=== PATIENT | male | born 1935 | race Caucasian/White ===

== ENCOUNTER 2017-05-13 14:38 | Emergency (ER) | payer MEDICARE, BC ==
--- NOTE | 2017-05-13 15:22 | ER Document Report ---
ED Medical Screen (RME) - General Chief Complaint: Blood Pressure Problem Stated Complaint: BLOOD PRESSURE ISSUES Time Seen by Provider: 05/13/17 15:21 Notes: Patient states that he went to physician's office today to get some medicine for a cough that he has had for about a week. He states that the office they noticed that his blood pressure is low so they referred him to his collision worker. His collision worker office was closed so he was sent to the emergency department. He states the last 4 days he has had increasing shortness of breath with exertion. He states he does have a history of myelodysplasia and is currently getting chemotherapy for it. TRAVEL OUTSIDE OF THE [place] IN LAST 30 DAYS: No - Related Data Allergies/Adverse Reactions: No Known Allergies Allergy (Verified 05/13/17 14:43) Past Medical History - Social History Chew tobacco use (# tins/day): No Frequency of alcohol use: None Drug Abuse: None - Past Medical History Cardiac Medical History: Reports: Hx Coronary Artery Disease - CHOLESTEROL, Hx Heart Attack - MILD, Hx Hypercholesterolemia, Hx Hypertension Pulmonary Medical History: Reports: Hx Pneumonia Denies: Hx Asthma, Hx Bronchitis, Hx COPD Neurological Medical History: Denies: Hx Cerebrovascular Accident, Hx Seizures Renal/ Medical History: Reports: Hx Kidney Stones. 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 EX-LAP 1961, Hx Cardiac Catheterization, Hx Testicular Surgery - LEFT ORCHIECTOMY WITH RADIATION [place] - Immunizations Hx Diphtheria, Pertussis, Tetanus Vaccination: Yes Physical Exam - Vital signs Vitals: Temp Pulse Resp BP Pulse Ox 97.6 F 42 L 18 140/50 H 99 05/13/17 14:42 05/13/17 14:42 05/13/17 14:42 05/13/17 14:42 05/13/17 14:42 Course - Vital Signs Vital signs: Temp Pulse Resp BP Pulse Ox 97.6 F 42 L 18 140/50 H 99 05/13/17 14:42 05/13/17 14:42 05/13/17 14:42 05/13/17 14:42 05/13/17 14:42
[2017-05-13 16:16] LABS: ABSOLUTE EOSINOPHILS # (AUTO) 0.3 10^3/uL (0.0-0.6); ABSOLUTE LYMPHOCYTES (AUTO) 1.5 10^3/uL (0.5-4.7); ABSOLUTE MONOCYTES (AUTO) 0.2 10^3/uL (0.1-1.4); BASOPHILS % (AUTO) 1.1 % (0-2); EOSINOPHILS % (AUTO) 7.6 % (0-6); HEMATOCRIT 30.5 % (37.9-51.0); HEMOGLOBIN 10.5 g/dL (13.5-17.0); LYMPHOCYTES % (AUTO) 36.8 % (13-45); MEAN CORPUSCULAR HEMOGLOBIN 33.3 pg (27.0-33.4); MEAN CORPUSCULAR HGB CONC 34.3 g/dL (32.0-36.0); MEAN CORPUSCULAR VOLUME 97 fl (80-97); RED BLOOD COUNT 3.14 10^6/uL (4.35-5.55); RED CELL DISTRIBUTION WIDTH 14.5 % (11.5-14.0); SEGMENTED NEUTROPHILS % (AUTO) 49.5 % (42-78); WHITE BLOOD COUNT 4.1 10^3/uL (4.0-10.5)
--- NOTE | 2017-05-13 16:27 | RADIOLOGY REPORT (SQ) ---
EXAM DESCRIPTION: CHEST PA/LAT COMPLETED DATE/TIME: 05/13/2017 4:14 pm REASON FOR STUDY: cough COMPARISON: None. EXAM PARAMETERS: NUMBER OF VIEWS: two views TECHNIQUE: Digital Frontal and Lateral radiographic views of the chest acquired. RADIATION DOSE: NA LIMITATIONS: none FINDINGS: LUNGS AND PLEURA: No opacities, masses or pneumothorax. No pleural effusion. MEDIASTINUM AND HILAR STRUCTURES: No masses or contour abnormalities. HEART AND VASCULAR STRUCTURES: Heart normal size. No evidence for failure. BONES: No acute findings. HARDWARE: None in the chest. OTHER: No other significant finding. IMPRESSION: NO SIGNIFICANT RADIOGRAPHIC FINDING IN THE CHEST. TECHNICAL DOCUMENTATION: JOB ID: [id number] [email or web address]- All Rights Reserved
[2017-05-13 16:31] LABS: ALANINE AMINOTRANSFERASE 33 U/L (21-72); ALBUMIN 3.6 g/dL (3.5-5.0); ALKALINE PHOSPHATASE 120 U/L (38-126); ANION GAP 10 (5-19); ASPARTATE AMINO TRANSFERASE 20 U/L (17-59); BILIRUBIN,DIRECT 0.3 mg/dL (0.0-0.4); BILIRUBIN,TOTAL 0.5 mg/dL (0.2-1.3); BLOOD UREA NITROGEN 27 mg/dL (7-20); CALCIUM 9.6 mg/dL (8.4-10.2); CARBON DIOXIDE 29 mmol/L (22-30); CHLORIDE 101 mmol/L (98-107); CREATININE RESULT 1.04 mg/dL (0.52-1.25); GLUCOSE 134 mg/dL (75-110); POTASSIUM 4.5 mmol/L (3.6-5.0); SODIUM 139.7 mmol/L (137-145); TOTAL PROTEIN 6.6 g/dL (6.3-8.2)
--- NOTE | 2017-05-13 16:53 | ER Document Report ---
ED General - General Mode of Arrival: Ambulatory Information source: Patient TRAVEL OUTSIDE OF THE [place] IN LAST 30 DAYS: No <DENISE HASTINGS - Last Filed: 05/13/17 19:05> <ANDRIY MEDRANO - Last Filed: 05/13/17 20:56> - General Chief Complaint: Blood Pressure Problem Stated Complaint: BLOOD PRESSURE ISSUES Time Seen by Provider: 05/13/17 15:21 Notes: 82 yo male with myelodysplasia cancer, left testicle cancer 1981, CAD, [place], hyperlipedemic, came to see [facility] once for his dry cough x 1 week and they found blood pressure 105/47 so they sent him thinking it was his hear. New symptom is lightheaded, vertigo, weakness, short of breath new symptoms this week, easily fatigued.. A few of those episodes past 3 weeks. No nausea, chest pain, or abdominal pain. Chemo last week- daily shots x 5. No hx of PE. [place] during colectomy for diverticulitis. 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 kenia blanco([facility] dr. bess) Examined EKG with Dr. Medrano and the pt is in 3rd degree heartblock. Started on Metoprolol XL 50mg 1 month ago (used to be on Atenolol) (DENISE HASTINGS) - Related Data Allergies/Adverse Reactions: No Known Allergies Allergy (Verified 05/13/17 14:43) Past Medical History - General Information source: Patient - Social History Smoking Status: Former Smoker Chew tobacco use (# tins/day): No Frequency of alcohol use: None Drug Abuse: None Lives with: Spouse/Significant other Family History: Reviewed & Not Pertinent - Past Medical History Cardiac Medical History: Reports: Hx Coronary Artery Disease - CHOLESTEROL, Hx Heart Attack - MILD, Hx Hypercholesterolemia, Hx Hypertension Pulmonary Medical History: Reports: Hx Pneumonia Renal/ Medical History: Reports: Hx Kidney Stones. Denies: Hx Peritoneal Dialysis Malignancy Medical History: Reports Hx Testicular Cancer Past Surgical History: Reports: Hx Bowel Surgery - 8 inches of small intestines removed 2005. EX-LAP 1961, Hx Cardiac Catheterization, Hx Testicular Surgery - LEFT ORCHIECTOMY WITH RADIATION [place] - Immunizations Hx Diphtheria, Pertussis, Tetanus Vaccination: Yes Hx Pneumococcal Vaccination: 08/16/05 <DENISE HASTINGS - Last Filed: 05/13/17 19:05> Review of Systems - Review of Systems Constitutional: See HPI EENT: No symptoms reported Cardiovascular: No symptoms reported Respiratory: See HPI Gastrointestinal: No symptoms reported Genitourinary: No symptoms reported Male Genitourinary: No symptoms reported Musculoskeletal: No symptoms reported Skin: No symptoms reported Hematologic/Lymphatic: No symptoms reported Neurological/Psychological: See HPI <DENISE HASTINGS - Last Filed: 05/13/17 19:05> Physical Exam - Vital signs Interpretation: Normal - General General appearance: Appears well, Alert In distress: None - HEENT Head: Normocephalic, Atraumatic Eyes: Normal Conjunctiva: Normal Pupils: PERRL Neck: Supple. No: Lymphadenopathy, Thyromegally - Respiratory Respiratory status: No respiratory distress Chest status: Nontender Breath sounds: Nonproductive cough - coarse wheeze left base Chest palpation: Normal - Cardiovascular Rhythm: Bradycardia, Other - heart block, 3rd degree suspected or high grade 2nd degree Heart sounds: Normal auscultation Murmur: No - Abdominal Inspection: Normal Distension: No distension Bowel sounds: Normal Tenderness: Nontender. No: Tender Organomegaly: No organomegaly - Back Back: Normal, Nontender - Extremities General upper extremity: Normal inspection, Nontender, Normal color, Normal ROM , Normal temperature General lower extremity: Normal inspection, Nontender, Normal color, Normal ROM , Normal temperature, Normal weight bearing. No: Ralph's sign - Neurological Neuro grossly intact: Yes Cognition: Normal Orientation: AAOx4 Zandra Coma Scale Eye Opening: Spontaneous Zandra Coma Scale Verbal: Oriented [place] Coma Scale Motor: Obeys Commands [place] Coma Scale Total: 15 Speech: Normal Motor strength normal: LUE, RUE, LLE, RLE Sensory: Normal - Psychological Associated symptoms: Normal affect, Normal mood - Skin Skin Temperature: Warm Skin Moisture: Dry Skin Color: Normal <DENISE HASTINGS - Last Filed: 05/13/17 19:05> <ANDRIY MEDRANO - Last Filed: 05/13/17 20:56> - Vital signs Vitals: Temp Pulse Resp BP Pulse Ox 97.6 F 42 L 18 140/50 H 99 05/13/17 14:42 05/13/17 14:42 05/13/17 14:42 05/13/17 14:42 05/13/17 14:42 - Cardiovascular Notes: occ pac (DENISE HASTINGS) Course - Laboratory Result Diagrams: 05/13/17 15:55 05/13/17 15:55 - EKG Interpretation by Me EKG shows normal: QRS Complexes - narrow Rate: Bradycardia Heart block present: Mobitz 2, CHB (3rd degree block) - possible - Transfer of Care Care transferred to following provider: dr. medrano at 1903 <DENISE HASTINGS - Last Filed: 05/13/17 19:05> - Laboratory Result Diagrams: 05/13/17 15:55 05/13/17 15:55 <ANDRIY MEDRANO - Last Filed: 05/13/17 20:56> - Re-evaluation Re-evalutation: 05/13/17 17:13 Dr. Weaver will come see the pt, he is in the hospital. 05/13/17 17:41 dr. Reuben ruiz will accept the pt. 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 parrish attending. Bassam will call back for bed assignment 05/13/17 18:04 Patient converted to normal sinus rhythm rate 68 with a MN of 0.20 Dr. Weaver is in the room again, patient still needs to go for a pacemaker and they are agreeable to that. (DENISE HASTINGS) 05/13/17 17:13: EKG shown to me by NATHAN Hastings. Patient immediately seen in pads placed on patient for Mobitz type II block or third-degree heart block. He remained stable and his potassium is normalized. Dr. Weaver in the emergency room to consult on patient and recommends transferring to tertiary care center for pacemaker placement or EP study. (ANDRIY MEDRANO) - Vital Signs Vital signs: Temp Pulse Resp BP Pulse Ox 97.6 F 42 L 16 134/64 H 99 05/13/17 14:42 05/13/17 14:42 05/13/17 17:57 05/13/17 17:57 05/13/17 17:57 - Laboratory Laboratory results interpreted by me: 05/13/17 05/13/17 05/13/17 15:55 15:55 15:55 RBC 3.14 L Hgb 10.5 L Hct 30.5 L RDW 14.5 H Eosinophils % 7.6 H BUN 27 H Glucose 134 H Creatine Kinase 36 L Critical Care Note - Critical Care Note Total time excluding time spent on procedures (mins): 35 <ANDRIY MEDRANO E - Last Filed: 05/13/17 20:56>
[2017-05-13] MEDS ORDERED: ALBUTEROL SULFATE 0.083% NEB 2.5 MG/3 ML AMPUL NEB ONE (17:01)
[2017-05-13] MEDS ORDERED: NORMAL SALINE 1000 ML 1,000 ML IV ONE (17:38)
--- NOTE | 2017-05-13 19:55 | PDOC CONSULTATION ---
Consultation Consult Date: 05/13/17 Attending physician:: DENISE PATEL Consult reason:: Complete heart block History of Present Illness Admission Date/PCP: May 13, 2017 Patient complains of: Dizziness and near syncope History of Present Illness: ROXY ALANIS is a 82 yo male with myelodysplasia cancer, left testicle cancer 1981, CAD, [place], hyperlipedemic, came to [facility] for his dry cough x 1 week and they found blood pressure 105/47 so they sent him thinking it was his heart. New symptom is lightheaded, vertigo, weakness, short of breath new symptoms this week, easily fatigued. A few of those episodes past 3 weeks. No nausea, chest pain, or abdominal pain. Chemo last week- daily shots x 5. No hx of PE. [place] during colectomy for diverticulitis. Agree with this history. Patient had an EKG performed and since this was abnormal I was asked to evaluate patient. My review of electrocardiogram shows high-grade second-degree Mobitz type II AV block. Patient had at least 3-1 block on EKG. I interviewed patient and also patient's daughter. Patient has been having dizziness and near syncopal spells off and on for last 3 weeks or so. Patient denied any chest pain as such. Patient claims he has been on a stable dose of beta-rayo. It was felt by my review that patient has conduction disease and since he has Mobitz type II, left axis deviation and right bundle branch block pattern as well as high-grade AV block, patient will need to be transferred to tertiary care for either pacemaker placement or a EP study. This was related to the ER physician who is going to arrange for the transfer. I also talked with the patient and her daughter and they are agreeable for such a procedure Past Medical History Cardiac Medical History: Reports: Coronary Artery Disease - CHOLESTEROL, Myocardial Infarction - MILD, Hyperlipidema, Hypertension Pulmonary Medical History: Reports: Pneumonia Denies: Asthma, Bronchitis, Chronic Obstructive Pulmonary Disease (COPD) Neurological Medical History: Denies: Seizures Musculoskeltal Medical History: Denies: Arthritis Hematology: Denies: Anemia Past Surgical History Past Surgical History: Reports: Cardiac Catheterization Social History Information Source: Patient Lives with: Spouse/Significant other Smoking Status: Former Smoker Frequency of Alcohol Use: Rare - Advance Directive Resuscitation Status: Full Code Surrogate healthcare decision maker:: Patient's daughter is the surrogate decision-maker Family History Family History: CAD, Hypertension Parental Family History Reviewed: Yes Children Family History Reviewed: Yes Sibling(s) Family History Reviewed.: Yes Medication/Allergy Home Medications: Atenolol [Tenormin 25 mg Tablet] 25 mg PO DAILY 11/19/12 Aspirin [Aspirin 81 mg Chewable Tablet] 81 mg PO DAILY 06/11/16 Atorvastatin Calcium 40 mg PO DAILY 06/11/16 Allergies/Adverse Reactions: No Known Allergies Allergy (Verified 05/13/17 14:43) Review of Systems Review of Systems: Please see history of present illness and past medical history as wall. Constitutional: No fever or chills reported. Head : No recent chronic headaches, recent head injury. Eyes: No recent eye pain, diplopia, redness, discharge, acute visual changes. Ears: No recent chronic ear pain, acute hearing loss, ear discharge. Oral cavity: No recent ulcerations, bleeding, oral cavity discomfort. Neck: No recent acute neck pain reported. Hematologic: No recent easy bruising or bleeding or hematologic malignancy reported. Lymphatic: No recent lymphatic malignancy, chronic lymphadenopathy reported yet Cardiovascular system review: See history of present illness. Respiratory system review: No recent chronic cough, hemoptysis, blood clots in the lungs reported. Mild Shortness of breath on exertion Gastrointestinal system review: Negative for any recent acute or chronic abdominal pain, hematemesis, melena, recent change in bowel habits. Genitourinary system review: No recent acute or chronic hematuria, flank pain, UTI etc. reported. Skin system review: Negative for any recent abnormal bruising, no rash, no pruritus reported. Neurologic: No prior history of strokes, mini strokes, seizure disorder. Intermittent dizziness and near syncope. Psychologic: No history of major psychosis or major depression reported. Musculoskeletal: Minor aches and pains reported. No acute joint swelling reported. Endocrine: No recent polyuria, polydipsia, recent heat or cold intolerance. Physical Exam Vital Signs: Temp Pulse Resp BP Pulse Ox 97.6 F 42 L 16 134/64 H 99 05/13/17 14:42 05/13/17 14:42 05/13/17 17:57 05/13/17 17:57 05/13/17 17:57 Intake & Output 05/12/17 05/13/17 05/14/17 06:59 06:59 06:59 Weight 67.3 kg Exam: GENERAL: well-nourished and in no acute distress. Alert and oriented x3 HEAD: Atraumatic, normocephalic. EYES: Pupils equal round and reactive to light, extraocular movements intact, sclera anicteric, conjunctiva are normal. ENT: TMs normal, nares patent, oropharynx clear without exudates. Moist mucous membranes. No oral ulcerations or bleeding gums noted NECK: supple without lymphadenopathy. Trachea is central. No cervical or axillary lymphadenopathy noted. Carotids are 2+, JVD WNL LUNGS: Respiration seems nonlabored, no significant accessory muscle action noted. Breath sounds clear to auscultation bilaterally and equal noted. No wheezes rales or rhonchi noted. No significant dullness noted on percussion. CHEST: Palpation of the chest wall shows no significant chest wall tenderness. No other significant abnormalities noted. 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 ABDOMEN: Soft, no significant tenderness appreciated, normoactive bowel sounds. No guarding, no rebound. No rigidity noted . No masses appreciated. EXTREMITIES: Pedal pulses are 1-2+, no calf tenderness noted. No clubbing or cyanosis.trace pedal edema noted NEUROLOGICAL: Focused neurological exam showed no significant neurologic deficit. Normal speech, no focal weakness appreciated. PSYCH: Normal mood, normal affect. Judgment and insight within normal limits. SKIN: No significant ecchymosis, rash, ulcerations or signs of pruritus noted. MUSCULOSKELETAL EXAM: No significant joint swelling noted. Urogenital exam deferred. Results Laboratory Results: 05/13/17 15:55 05/13/17 15:55 05/13/17 05/13/17 15:55 15:55 WBC 4.1 RBC 3.14 L Hgb 10.5 L Hct 30.5 L MCV 97 MCH 33.3 MCHC 34.3 RDW 14.5 H Plt Count 193 Seg Neutrophils % 49.5 Lymphocytes % 36.8 Monocytes % 5.0 Eosinophils % 7.6 H Basophils % 1.1 Absolute Neutrophils 2.0 Absolute Lymphocytes 1.5 Absolute Monocytes 0.2 Absolute Eosinophils 0.3 Absolute Basophils 0.0 Sodium 139.7 Potassium 4.5 Chloride 101 Carbon Dioxide 29 Anion Gap 10 BUN 27 H Creatinine 1.04 Est GFR ( Amer) > 60 Est GFR (Non-Af Amer) > 60 Glucose 134 H Calcium 9.6 Total Bilirubin 0.5 AST 20 ALT 33 Alkaline Phosphatase 120 Total Protein 6.6 Albumin 3.6 05/13/17 05/13/17 05/13/17 15:55 15:55 15:55 Creatine Kinase 36 L CK-MB (CK-2) 0.44 Troponin I < 0.012 EKG Comments: High-grade AV block, left axis deviation, right bundle branch block pattern. Impressions: Chest X-Ray 05/13/17 15:22 IMPRESSION: NO SIGNIFICANT RADIOGRAPHIC FINDING IN THE CHEST. Assessment & Plan - Diagnosis (1) High-grade atrioventricular block Is this a current diagnosis for this admission?: Yes (2) Hypotension Qualifiers: Hypotension type: unspecified hypotension type Qualified Code(s): I95.9 - Hypotension, unspecified Is this a current diagnosis for this admission?: Yes (3) CAD (coronary artery disease) Qualifiers: Coronary Disease-Associated Artery/Lesion type: [place] artery Is this a current diagnosis for this admission?: Yes (4) Hypertension Qualifiers: Hypertension type: essential hypertension Qualified Code(s): I10 - Essential (primary) hypertension Is this a current diagnosis for this admission?: Yes (5) Hyperlipidemia Qualifiers: Hyperlipidemia type: unspecified Qualified Code(s): E78.5 - Hyperlipidemia , unspecified Is this a current diagnosis for this admission?: Yes - Notes Notes: High-grade AV block: Possible intermittent complete heart block and high-grade AV block with symptoms. Patient has Mobitz type II block, left axis deviation and right bundle branch block pattern. Feel that patient would need to be evaluated for permanent pacemaker placement and also possible EP study. Feel that patient could be placed on transcutaneous patches and observed in the ER until transportation can be arranged. Hypotension: Blood pressure could be low because of AV block. Intermittently it has been noted to normalize when patient's heart rate improves. At this point continue with slow IV fluids hydration. Coronary artery disease: Symptomatically stable. Hypertension: Currently stable. Dyslipidemia: Continue statin and other antilipid therapy as patient was on before. - Time Time Spent: 30 to 50 Minutes - CODE STATUS was discussed, patient remains full code. Surrogate decision-maker patient's daughter. Multiple medical problems were addressed. More than 50% of the time spent coordinating care, discussing management plans with involved caregivers. Management plans discussed with involved personnels. Medical decision making was of moderate to high complexity , patient's has multiple comorbidities. Medications reviewed and adjusted accordingly: Yes
--- NOTE | 2017-05-14 03:56 | EKG REPORT ---
SEVERITY:- ABNORMAL ECG - SINUS BRADYCARDIA RIGHT BUNDLE BRANCH BLOCK : Confirmed by: Lupe Caceres MD 14-May-2017 03:55:58
--- NOTE | 2017-05-14 03:56 | EKG REPORT ---
SEVERITY:- ABNORMAL ECG - SINUS RHYTHM RIGHT BUNDLE BRANCH BLOCK : Confirmed by: Lupe Caceres MD 14-May-2017 03:55:54
--- NOTE | 2017-05-14 03:56 | EKG REPORT ---
SEVERITY:- ABNORMAL ECG - SINUS BRADYCARDIA IVCD, CONSIDER ATYPICAL RBBB : Confirmed by: Lupe Caceres MD 14-May-2017 03:55:51
--- NOTE | 2017-05-14 06:30 | ER Document Report ---
Doctor's Note Notes: 05/14/17 06:27 I went to reevaluate the patient to check and see how he is doing. Patient says he feels the same. Denies any chest pain at this time. His heart rate remains mid 30s to low 40s. Blood pressure is 105/69. [facility] did call and speak with the PA fraction hour ago. There is still looking for a bed for the patient. Patient is continued to be on a monitor. Pacer pads are in place. Patient was initially made n.p.o. I will upgrade him to a full liquid diet being that we do not know about bed availability at this time. Patient continues to peer to have a second-degree type II heart block on solutions market consultant. I did update the patient and his family member about the continued delay. They are understanding of this.
[2017-05-14 15:42] VITALS: BP 133/49
--- NOTE | 2017-05-14 15:46 | ER Document Report ---
Doctor's Note Notes: 05/14/17 15:46 pt evalauted is stable, hr was 40s , pt is awaiting transport at this time
== END 2017-05-14 16:06 | disposition short-term general hospital (02) ==
LOC: ER 14:38
DX: I45.9 Conduction disorder, unspecified (principal); R03.0 Elevated blood-pressure reading, without diagnosis of hypertension; R05 Cough; R06.02 Shortness of breath
CPT/HCPCS: 93005; 94640; 99285; 96360; 96361; 36415; 82553; 82550; 85025; 80053; 84484; 71020; 93010; J7030; A9270

== ENCOUNTER 2017-12-14 00:26 | Inpatient (IN) | payer MEDICARE, BC ==
[2017-12-14] MEDS ORDERED: ONDANSETRON HCL INJ/PF 4 MG/2 ML SDV IV ONE (01:21)
[2017-12-14] MEDS ORDERED: HYDROMORPHONE HCL INJ/PF 2 MG/ML AMPULE IV ONE (01:21)
--- NOTE | 2017-12-14 01:24 | ER Document Report ---
ED Medical Screen (RME) - General Chief Complaint: Abdominal Pain Stated Complaint: ABDOMINAL PAIN Time Seen by Provider: 12/14/17 01:20 Mode of Arrival: Ambulatory Information source: Patient TRAVEL OUTSIDE OF THE [place] IN LAST 30 DAYS: No - HPI Patient complains to provider of: Abdominal pain Notes: 12/14/17 01:22 Patient is here with complaints of lower abdominal pain. Pain started earlier this evening. The pain is constant but he has waves of increasing severe pain. He had nausea, no vomiting no diarrhea. Normal bowel movement yesterday morning. No fever. No dysuria or hematuria. Prior history of testicular cancer with radiation. Myelodysplasia. Diverticulitis. Prior bowel resection. No history of bowel obstruction. Physical exam: Tenderness across the lower abdomen with guarding. No distress. Nontoxic. Appears uncomfortable. Plan: CBC, CMP, lipase, urine, CT abdomen pelvis. Pain and nausea medications have been ordered. An initial examination was made on the patient as part of the triage process, and it was determined a more comprehensive evaluation was necessary. Initial labs were ordered and patient was transferred to another provider in the ED who assumed care and finished evaluation and plan. - Related Data Allergies/Adverse Reactions: No Known Allergies Allergy (Verified 05/13/17 14:43) Past Medical History - Past Medical History Cardiac Medical History: Reports: Hx Coronary Artery Disease - CHOLESTEROL, Hx Heart Attack - MILD, Hx Hypercholesterolemia, Hx Hypertension Pulmonary Medical History: Reports: Hx Pneumonia Denies: Hx Asthma, Hx Bronchitis, Hx COPD Neurological Medical History: Denies: Hx Cerebrovascular Accident, Hx Seizures Renal/ Medical History: Reports: Hx Kidney Stones. 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 EX-LAP 1961, Hx Cardiac Catheterization, Hx Testicular Surgery - LEFT ORCHIECTOMY WITH RADIATION [place] - Immunizations Hx Diphtheria, Pertussis, Tetanus Vaccination: Yes Physical Exam - Vital signs Vitals: Temp Pulse Resp BP Pulse Ox 98.3 F 81 20 123/59 L 97 12/14/17 00:38 12/14/17 00:38 12/14/17 00:38 12/14/17 00:38 12/14/17 00:38 Course - Vital Signs Vital signs: Temp Pulse Resp BP Pulse Ox 98.3 F 81 20 123/59 L 97 12/14/17 00:38 12/14/17 00:38 12/14/17 00:38 12/14/17 00:38 12/14/17 00:38
[2017-12-14] MEDS ORDERED: NORMAL SALINE 500 ML IV ONE (01:58)
--- NOTE | 2017-12-14 02:32 | ER Document Report ---
ED General - General Chief Complaint: Abdominal Pain Stated Complaint: ABDOMINAL PAIN Time Seen by Provider: 12/14/17 01:20 Mode of Arrival: Ambulatory Notes: Patient is an 82-year-old male who presents with complaints of pain mostly in the periumbilical left lower quadrant. He has a history of diverticulitis. He has had partial bowel resection because of diverticulitis. Said this was performed 2005. He does denies any fevers. He has had some nausea but no vomiting. Pain is been ongoing since Wednesday but worsened tonight and therefore came to the ER. No bloody stools. No diarrhea. Last bowel movement was in the morning. No history of obstruction. No other complaints at this time. 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 He used to be on chemotherapy but no longer is. He says white blood cell count most recently was just over 2. TRAVEL OUTSIDE OF THE [place] IN LAST 30 DAYS: No - Related Data Allergies/Adverse Reactions: No Known Allergies Allergy (Verified 05/13/17 14:43) Past Medical History - General Information source: Patient - Social History Smoking Status: Never Smoker Frequency of alcohol use: None Drug Abuse: None Family History: CAD, Hypertension - Past Medical History Cardiac Medical History: Reports: Hx Coronary Artery Disease - CHOLESTEROL, Hx Heart Attack - MILD, Hx Hypercholesterolemia, Hx Hypertension Pulmonary Medical History: Reports: Hx Pneumonia Denies: Hx Asthma, Hx Bronchitis, Hx COPD Neurological Medical History: Denies: Hx Cerebrovascular Accident, Hx Seizures Renal/ Medical History: Reports: Hx Kidney Stones. 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 EX-LAP 1961, Hx Cardiac Catheterization, Hx Testicular Surgery - LEFT ORCHIECTOMY WITH RADIATION [place] - Immunizations Hx Diphtheria, Pertussis, Tetanus Vaccination: Yes Hx Pneumococcal Vaccination: 08/16/05 Review of Systems - Review of Systems Notes: My Normal Review Basic REVIEW OF SYSTEMS: CONSTITUTIONAL : Denies fever, chills, or sweats. Denies recent illness. RESPIRATORY: Denies cough, cold, or chest congestion. Denies shortness of breath, difficulty breathing, or wheezing. GASTROINTESTINAL: Abdominal pain in the periumbilical and left lower quadrant. GENITOURINARY: Denies difficulty urinating, painful urination, burning, frequency, or blood in urine. MUSCULOSKELETAL: Denies neck or back pain or joint pain or swelling. SKIN: Denies rash or skin lesions. HEMATOLOGIC : History of myelodysplasia NEUROLOGICAL: Denies altered mental status or loss of consciousness. Denies headache. Denies weakness or paralysis or loss of use of either side. Denies problems with gait or speech. Denies sensory or motor loss. ALL OTHER SYSTEMS REVIEWED AND NEGATIVE. Physical Exam - Vital signs Vitals: Temp Pulse Resp BP Pulse Ox 98.3 F 81 20 123/59 L 97 12/14/17 00:38 12/14/17 00:38 12/14/17 00:38 12/14/17 00:38 12/14/17 00:38 - Notes Notes: General Appearance: Well nourished, alert, cooperative, no acute distress, no obvious discomfort. Well-appearing. Vitals: reviewed, See vital signs table. Head: no swelling or tenderness to the head Eyes: PERRL, EOMI, Conjuctiva clear Mouth: No decreasd moisture Throat: No tonsillar inflammation, No airway obstruction, No lymphadenopathy Lungs: No wheezing, No rales, No rhonci, No accessory muscle use, good air exchange bilaterally. Heart: Normal rate, Regular rythm, No murmur, no rub Abdomen: Normal BS, soft, No rigidity, mild left lower quadrant abdominal tenderness to palpation, No guarding, no rebound, no abdominal masses, no organomegaly Extremities: strength 5/5 in all extremities, good pulses in all extremities, no swelling or tenderness in the extremities, no edema. Skin: warm, dry, appropriate color, no rash Neuro: speech clear, oriented x 3, normal affect, responds appropriately to questions. Course - Re-evaluation Re-evalutation: 12/14/17 04:37 Patient clinically is doing okay. He is not hypotensive or tachycardic. He says that his pain is improving and he still looks a little uncomfortable. He does have diverticulosis on CT scan. Is consistent with his history and exam. I have ordered Cipro and Flagyl. I have called the hospitalist to speak with him about admission because the patient has history of complications from diverticulitis in the past, he is 82 years old, and he has leukopenia. Fortunately his ANC is above 2000. 12/14/17 05:27 I did speak with Dr. Koroma who agrees to evaluate the patient for potential admission. Dictation of this chart was performed using voice recognition software; therefore, there may be some unintended grammatical errors. - Vital Signs Vital signs: Temp Pulse Resp BP Pulse Ox 98.3 F 81 20 123/59 L 97 12/14/17 00:38 12/14/17 00:38 12/14/17 00:38 12/14/17 00:38 12/14/17 00:38 - Laboratory Result Diagrams: 12/14/17 02:50 12/14/17 02:50 Laboratory results interpreted by me: 12/14/17 12/14/17 02:50 02:50 WBC 3.0 L RBC 3.45 L Hgb 11.5 L Hct 34.0 L MCV 99 H RDW 14.9 H Plt Count 138 L BUN 24 H Glucose 124 H Alkaline Phosphatase 147 H Discharge - Discharge Clinical Impression: Diverticulitis Condition: Stable Disposition: ADMITTED OBSERVATION Admitting Provider: Hospitalist Unit Admitted: Medical Floor
[2017-12-14 03:20] LABS: ABSOLUTE LYMPHOCYTES (AUTO) 0.8 10^3/uL (0.5-4.7); ABSOLUTE MONOCYTES (AUTO) 0.1 10^3/uL (0.1-1.4); BASOPHILS % (AUTO) 0.2 % (0-2); EOSINOPHILS % (AUTO) 0.9 % (0-6); HEMOGLOBIN 11.5 g/dL (13.5-17.0); LYMPHOCYTES % (AUTO) 25.9 % (13-45); MEAN CORPUSCULAR HEMOGLOBIN 33.3 pg (27.0-33.4); MEAN CORPUSCULAR HGB CONC 33.7 g/dL (32.0-36.0); MEAN CORPUSCULAR VOLUME 99 fl (80-97); MONOCYTES % (AUTO) 4.7 % (3-13); PLATELET COUNT 138 10^3/uL (150-450); RED BLOOD COUNT 3.45 10^6/uL (4.35-5.55); RED CELL DISTRIBUTION WIDTH 14.9 % (11.5-14.0); SEGMENTED NEUTROPHILS % (AUTO) 68.3 % (42-78); TOTAL CELLS COUNTED % (AUTO) 100 %
[2017-12-14 03:30] LABS: ALANINE AMINOTRANSFERASE 41 U/L (21-72); ALBUMIN 4.1 g/dL (3.5-5.0); ALKALINE PHOSPHATASE 147 U/L (38-126); ANION GAP 12 (5-19); ASPARTATE AMINO TRANSFERASE 32 U/L (17-59); BILIRUBIN,DIRECT 0.3 mg/dL (0.0-0.4); BILIRUBIN,TOTAL 0.6 mg/dL (0.2-1.3); BLOOD UREA NITROGEN 24 mg/dL (7-20); CALCIUM 9.6 mg/dL (8.4-10.2); CARBON DIOXIDE 30 mmol/L (22-30); CHLORIDE 99 mmol/L (98-107); GLUCOSE 124 mg/dL (75-110); LIPASE 48.8 U/L (23-300); POTASSIUM 4.1 mmol/L (3.6-5.0); SODIUM 140.7 mmol/L (137-145); TOTAL PROTEIN 7.6 g/dL (6.3-8.2)
[2017-12-14 03:39] LABS: APPEARANCE,URINE CLEAR; BILIRUBIN,URINE NEGATIVE (NEGATIVE); COLOR,URINE YELLOW; GLUCOSE, URINE NEGATIVE (NEGATIVE); KETONES,URINE NEGATIVE (NEGATIVE); LEUKOCYTE ESTERASE,URINE NEGATIVE (NEGATIVE); NITRITE,URINE NEGATIVE (NEGATIVE); PROTEIN,URINE NEGATIVE (NEGATIVE); URINE SPECIFIC GRAVITY 1.017; UROBILINOGEN,URINE NEGATIVE mg/dL (<2.0)
--- NOTE | 2017-12-14 04:29 | RADIOLOGY REPORT (SQ) ---
EXAM DESCRIPTION: CT ABDOMEN AND PELVIS WITH CONTRAST CLINICAL HISTORY: ABDO PAIN, NAUSEA, PRIOR DIVERTIC/RESECTION/CA COMPARISON: None Available. TECHNIQUE: CT of the abdomen and pelvis performed following IV administration of 75 mL of Isovue-370. DLP: 654.42 mGycm FINDINGS: Lung Bases: The visualized lung bases are clear. Partial visualization of pacemaker leads. Bones: Degenerative change of the spine. Abdomen: Liver: The liver has normal size and density. No intrahepatic mass or biliary dilatation. Calcified hepatic granulomas. Gallbladder: No calcified gallstones. Spleen, Pancreas, and Adrenal Glands: Calcified splenic granulomas. Fatty replacement of the pancreas. Adrenal glands are unremarkable. Kidneys: Punctate nonobstructing bilateral renal ki. No hydronephrosis or solid renal mass identified. Bosniak class I right renal cyst. Vasculature: Aortoiliac atherosclerosis. IVC is unremarkable. The portal vein is patent. The proximal visceral and renal arteries are patent. Stomach: The stomach and duodenum have normal course. Other: No free intraperitoneal air. No free fluid or lymphadenopathy. Pelvis: Bladder: Urinary bladder is unremarkable. Bowel: Scattered diverticula of the colon as well as of the bowel. There is a large diverticulum of the distal small bowel with adjacent perienteric fat stranding. Appendix: No evidence of appendicitis. Pelvis: Enlarged prostate. IMPRESSION: 1. Findings compatible with acute diverticulitis of the distal small bowel. No perienteric abscess formation. 2. Enlarged prostate. 3. Punctate nonobstructing bilateral renal calculi. This exam was performed according to our departmental dose-optimization program, which includes automated exposure control, adjustment of the mA and/or kV according to patient size and/or use of iterative reconstruction technique.
[2017-12-14] MEDS ORDERED: CIPROFLOXACIN 400 MG/D5W RTU 400 MG/200 ML RTUPB IV ONE (04:33)
[2017-12-14] MEDS ORDERED: METRONIDAZOLE 500 MG/NS RTU 100 ML IV ONE (04:33)
[2017-12-14] MEDS ORDERED: MAG HYDROX/AL HYDROX/SIMETH SUSP 30 ML UDCUP PO PRN (05:33)
[2017-12-14] MEDS ORDERED: IPRATROPIUM/ALBUTEROL 0.5-2.5 MG/3 ML AMPUL NEB PRN (05:33)
[2017-12-14] MEDS ORDERED: ACETAMINOPHEN 325 MG TABLET PO PRN (05:33)
[2017-12-14] MEDS ORDERED: ONDANSETRON HCL INJ/PF 4 MG/2 ML SDV IV PRN (05:33)
[2017-12-14] MEDS ORDERED: KETOROLAC TROMETHAMINE INJ/PF 30 MG/1 ML SDV IV PRN (05:36)
[2017-12-14] MEDS: NORMAL SALINE 1000 ML 1,000 ML IV PRN ×2 (06:49→10:13)
[2017-12-14] MEDS: HEPARIN SOD (PORCINE) 5,000 UNIT/ML 1 ML SYRINGE SUBCUT SCH ×3 (07:09→21:42)
--- NOTE | 2017-12-14 07:25 | PDOC H&P ---
History of Present Illness Admission Date/PCP: 12/14/17 05:41 Patient complains of: Abdominal pain History of Present Illness: ROXY ALANIS is a 82 year old male with history of bradycardia status post permanent pacemaker placement, coronary artery disease, hypertension, myelodysplasia with leukopenia, diverticulitis status post partial colon resection. He presents with 12 hours of abdominal pain and nausea prompting evaluation emergency room where he is found to have diverticulitis by CT without abscess, a white blood cell count of 3.0. He started on IV saline, ciprofloxacin and Flagyl. He is referred to the hospitalist for admission. Patient denies new medication, diet or constipation. Past Medical History Cardiac Medical History: Reports: Coronary Artery Disease - CHOLESTEROL, Myocardial Infarction - MILD, Hyperlipidema, Hypertension Pulmonary Medical History: Reports: Pneumonia Denies: Asthma, Bronchitis, Chronic Obstructive Pulmonary Disease (COPD) Neurological Medical History: Denies: Seizures Malignancy Medical History: Reports: Other - Myelodysplasia and leukopenia Musculoskeltal Medical History: Denies: Arthritis Hematology: Denies: Anemia Past Surgical History Past Surgical History: Reports: Cardiac Catheterization, Pacemaker, Other - Partial colon resection 2015 Social History Information Source: Patient, [facility] Records Lives with: Spouse/Significant other Smoking Status: Never Smoker Frequency of Alcohol Use: Rare Drugs: None - Advance Directive Resuscitation Status: Full Code Family History Family History: CAD, Hypertension Parental Family History Reviewed: Yes Children Family History Reviewed: Yes Sibling(s) Family History Reviewed.: Yes Medication/Allergy Allergies/Adverse Reactions: No Known Allergies Allergy (Verified 05/13/17 14:43) Review of Systems Constitutional: ABSENT: chills, fever(s), headache(s), weight gain, weight loss Eyes: ABSENT: visual disturbances Ears: ABSENT: hearing changes Cardiovascular: ABSENT: chest pain, dyspnea on exertion, edema, orthropnea, palpitations Respiratory: ABSENT: cough, hemoptysis Gastrointestinal: ABSENT: abdominal pain, constipation, diarrhea, hematemesis, hematochezia, nausea, vomiting Genitourinary: ABSENT: dysuria, hematuria Musculoskeletal: ABSENT: joint swelling Integumentary: ABSENT: rash, wounds Neurological: ABSENT: abnormal gait, abnormal speech, confusion, dizziness, focal weakness, syncope Psychiatric: ABSENT: anxiety, depression, homidical ideation, suicidal ideation Endocrine: ABSENT: cold intolerance, heat intolerance, polydipsia, polyuria Hematologic/Lymphatic: ABSENT: easy bleeding, easy bruising Physical Exam Vital Signs: Temp Pulse Resp BP Pulse Ox 99.4 F 81 15 118/50 L 91 L 12/14/17 07:11 12/14/17 00:38 12/14/17 06:01 12/14/17 06:00 12/14/17 06:01 General appearance: PRESENT: cooperative, mild distress, well-developed, well- nourished Head exam: PRESENT: atraumatic, normocephalic Eye exam: PRESENT: conjunctiva pink, EOMI, PERRLA. ABSENT: scleral icterus Ear exam: PRESENT: normal external ear exam Mouth exam: PRESENT: moist, tongue midline Neck exam: ABSENT: carotid bruit, JVD, lymphadenopathy, thyromegaly Respiratory exam: PRESENT: clear to auscultation belen. ABSENT: rales, rhonchi, wheezes Cardiovascular exam: PRESENT: RRR. ABSENT: diastolic murmur, rubs, systolic murmur Pulses: PRESENT: normal dorsalis pedis pul Vascular exam: PRESENT: normal capillary refill GI/Abdominal exam: PRESENT: hyperactive bowel sounds, normal bowel sounds, soft , tenderness. ABSENT: distended, guarding, mass, organolmegaly, rebound Rectal exam: PRESENT: deferred Extremities exam: PRESENT: full ROM. ABSENT: calf tenderness, clubbing, pedal edema Neurological exam: PRESENT: alert, awake, oriented to person, oriented to place , oriented to time, oriented to situation, CN II-XII grossly intact. ABSENT: motor sensory deficit Psychiatric exam: PRESENT: appropriate affect, normal mood. ABSENT: homicidal ideation, suicidal ideation Skin exam: PRESENT: dry, intact, warm. ABSENT: cyanosis, rash Results Impressions: Abdomen/Pelvis CT 12/14/17 01:21 IMPRESSION: 1. Findings compatible with acute diverticulitis of the distal small bowel. No perienteric abscess formation. 2. Enlarged prostate. 3. Punctate nonobstructing bilateral renal calculi. This exam was performed according to our departmental dose-optimization program, which includes automated exposure control, adjustment of the mA and/or kV according to patient size and/or use of iterative reconstruction technique. Assessment & Plan - Diagnosis (1) Diverticulitis Is this a current diagnosis for this admission?: Yes Plan: Mid floor observation, bowel rest, IV Cipro p.o. Flagyl. Follow-up CBC (2) Abdominal pain Is this a current diagnosis for this admission?: Yes Plan: Bowel rest and symptomatic management correction of #1 (3) CAD (coronary artery disease) Is this a current diagnosis for this admission?: Yes Plan: Continue outpatient regiment - Time Time Spent: 30 to 50 Minutes - Inpatient Certification Medical Necessity: Need Close Monitoring Due to Risk of Patient Decompensation
[2017-12-14] MEDS: ASPIRIN 81 MG TABLET, CHEWABLE PO SCH (10:13)
[2017-12-14] MEDS: DOCUSATE SODIUM 100 MG CAPSULE PO SCH ×2 (10:13→17:18)
[2017-12-14] MEDS: ATORVASTATIN CALCIUM 40 MG TABLET PO SCH (10:13)
[2017-12-14] MEDS: ATENOLOL 50 MG TABLET PO SCH (11:23)
--- NOTE | 2017-12-14 12:10 | Physician Advisory Note ---
Physician Advisor ProgressNote .: Pursuant to the plan for [facility], I have reviewed the medical record for this patient. Physician Advisor Statement: Please consider documenting, if you agree: 1. "pancytopenia, suspect due to " 2. "Strongly feel this pt will not be safe for d/c as soon as 12/15 because _" OR: make Obs for now, & change to Inpt status on 12/15 if/when able to document clinical concerns that require a 2nd MN in hospital. 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 At time of H&P, pt still in mild distress despite a dose of Dilaudid & Zofran in ED (along w/IV cipro/flagyl). Plan is bowel rest (clear liquids), IV cipro, po flagyl, NS IV x 2L, f/u labs 12/15, prn IV Ketorolac & Zofran, O2, nebs, continued atenolol. At this point, this pt has 0 MNs in hospital. It is clear that admitting attending expected at least 1 MN stay at time of admission (through 12/15). We need explicit documentation of reasons attending expects this pt to require 2MNs in hospital, or Obs status until this can be accurately documented. Thanks! CK
[2017-12-14] MEDS: METRONIDAZOLE 500 MG TABLET PO SCH ×2 (12:22→17:17)
[2017-12-14] MEDS: CIPROFLOXACIN 400 MG/D5W RTU 400 MG/200 ML RTUPB IV SCH (17:18)
--- NOTE | 2017-12-14 20:53 | Progress Note ---
Provider Note Provider Note: Patient is feeling a little better. He is hungry. Tolerating clear liquid diet. He will like to try advancement of diet which I have ordered. His exam is significant for left lower quadrant tenderness, no rebound. We will continue IV antibiotics for now for at least 2-3 days, given his underlying chronic leukemia, so I strongly feel it is unsafe to discharge him before . We will also continue IV fluids for now.
[2017-12-15] MEDS: METRONIDAZOLE 500 MG TABLET PO SCH ×5 (01:01→23:20)
[2017-12-15] MEDS: CIPROFLOXACIN 400 MG/D5W RTU 400 MG/200 ML RTUPB IV SCH (05:15)
[2017-12-15] MEDS: HEPARIN SOD (PORCINE) 5,000 UNIT/ML 1 ML SYRINGE SUBCUT SCH ×3 (05:16→21:10)
[2017-12-15 06:12] LABS: ABSOLUTE LYMPHOCYTES (AUTO) 1.1 10^3/uL (0.5-4.7); ABSOLUTE MONOCYTES (AUTO) 0.1 10^3/uL (0.1-1.4); ABSOLUTE NEUT (AUTO) 1.3 10^3/uL (1.7-8.2); BASOPHILS % (AUTO) 0.3 % (0-2); EOSINOPHILS % (AUTO) 1.9 % (0-6); MEAN CORPUSCULAR HEMOGLOBIN 33.4 pg (27.0-33.4); MEAN CORPUSCULAR HGB CONC 34.2 g/dL (32.0-36.0); MEAN CORPUSCULAR VOLUME 98 fl (80-97); MONOCYTES % (AUTO) 4.1 % (3-13); PLATELET COUNT 104 10^3/uL (150-450); RED BLOOD COUNT 2.76 10^6/uL (4.35-5.55); RED CELL DISTRIBUTION WIDTH 15.2 % (11.5-14.0); SEGMENTED NEUTROPHILS % (AUTO) 50.7 % (42-78); TOTAL CELLS COUNTED % (AUTO) 100 %; WHITE BLOOD COUNT 2.6 10^3/uL (4.0-10.5)
[2017-12-15 06:18] LABS: BLOOD UREA NITROGEN 18 mg/dL (7-20); CALCIUM 8.3 mg/dL (8.4-10.2); CHLORIDE 104 mmol/L (98-107); GLUCOSE 95 mg/dL (75-110); POTASSIUM 4.1 mmol/L (3.6-5.0)
[2017-12-15 06:20] LABS: HEMOGLOBIN 9.2 g/dL (13.5-17.0)
[2017-12-15 06:29] LABS: ANION GAP 6 (5-19); CARBON DIOXIDE 29 mmol/L (22-30); SODIUM 138.8 mmol/L (137-145)
[2017-12-15] MEDS: ASPIRIN 81 MG TABLET, CHEWABLE PO SCH (09:53)
[2017-12-15] MEDS: ATORVASTATIN CALCIUM 40 MG TABLET PO SCH (09:53)
[2017-12-15] MEDS: DOCUSATE SODIUM 100 MG CAPSULE PO SCH ×2 (09:53→17:34)
[2017-12-15] MEDS: ATENOLOL 50 MG TABLET PO SCH (09:55)
--- NOTE | 2017-12-15 16:43 | PDOC PROGRESS REPORT ---
Subjective Progress Note for:: 12/15/17 Subjective:: Still with abdominal pain left lower quadrant to periumbilical area. Diet is small amount of food. Denies fever or chills, no chest pain or shortness of breath, has some nausea, but no vomiting. Last colonoscopy was done 2 years ago. Reason For Visit: ACUTE DIVERTICULITUS ABDOMINAL PAIN Physical Exam Vital Signs: Temp Pulse Resp BP Pulse Ox 98.9 F 67 18 122/58 L 96 12/15/17 12:21 12/15/17 12:21 12/15/17 12:21 12/15/17 12:21 12/15/17 12:21 Intake & Output 12/14/17 12/15/17 12/16/17 06:59 06:59 06:59 Intake Total 3173 Output Total 1700 Balance 1473 Weight 66.4 kg GEN: NAD, well-developed, well-nourished CV: RRR, NL S1S2 LUNGS: CTA bilaterally ABDOMEN Soft, mild left lower quadrant tenderness, no rebound or guarding, +BS EXTERMITIES: No e/c/c NEURO: Alert, oriented 3, no focal Results Laboratory Results: 12/15/17 05:44 12/15/17 05:44 12/15/17 12/15/17 05:44 05:44 WBC 2.6 L RBC 2.76 L Hgb 9.2 L D Hct 27.0 L MCV 98 H MCH 33.4 MCHC 34.2 RDW 15.2 H Plt Count 104 L Seg Neutrophils % 50.7 Lymphocytes % 43.0 Monocytes % 4.1 Eosinophils % 1.9 Basophils % 0.3 Absolute Neutrophils 1.3 L Absolute Lymphocytes 1.1 Absolute Monocytes 0.1 Absolute Eosinophils 0.0 Absolute Basophils 0.0 Sodium 138.8 Potassium 4.1 Chloride 104 Carbon Dioxide 29 Anion Gap 6 BUN 18 Creatinine 0.85 Est GFR ( Amer) > 60 Est GFR (Non-Af Amer) > 60 Glucose 95 Calcium 8.3 L Impressions: Abdomen/Pelvis CT 12/14/17 01:21 IMPRESSION: 1. Findings compatible with acute diverticulitis of the distal small bowel. No perienteric abscess formation. 2. Enlarged prostate. 3. Punctate nonobstructing bilateral renal calculi. This exam was performed according to our departmental dose-optimization program, which includes automated exposure control, adjustment of the mA and/or kV according to patient size and/or use of iterative reconstruction technique. Assessment & Plan - Plan Summary Plan Summary: (1) Diverticulitis Is this a current diagnosis for this admission?: Yes Plan: Continue to monitor patient, continue diet as tolerated, in a.m. IV Cipro p.o. Flagyl. Follow-up CBC (2) Abdominal pain Is this a current diagnosis for this admission?: Yes Plan: As a #1 (3) CAD (coronary artery disease) Is this a current diagnosis for this admission?: Yes Plan: Continue outpatient regiment (3) pancytopenia Is this a current diagnosis for this admission?: Yes Plan: Suspect secondary to myelodysplasia/leukemia. Continue to monitor.
[2017-12-15] MEDS: CIPROFLOXACIN HCL 500 MG TABLET PO SCH (17:34)
[2017-12-16] MEDS: CIPROFLOXACIN HCL 500 MG TABLET PO SCH (05:05)
[2017-12-16] MEDS: METRONIDAZOLE 500 MG TABLET PO SCH ×2 (05:06→11:37)
[2017-12-16] MEDS: HEPARIN SOD (PORCINE) 5,000 UNIT/ML 1 ML SYRINGE SUBCUT SCH (05:10)
[2017-12-16 07:22] LABS: ABSOLUTE EOSINOPHILS # (AUTO) 0.1 10^3/uL (0.0-0.6); ABSOLUTE LYMPHOCYTES (AUTO) 0.9 10^3/uL (0.5-4.7); ABSOLUTE MONOCYTES (AUTO) 0.1 10^3/uL (0.1-1.4); ABSOLUTE NEUT (AUTO) 1.1 10^3/uL (1.7-8.2); BASOPHILS % (AUTO) 0.2 % (0-2); EOSINOPHILS % (AUTO) 3.3 % (0-6); HEMATOCRIT 27.8 % (37.9-51.0); HEMOGLOBIN 9.6 g/dL (13.5-17.0); LYMPHOCYTES % (AUTO) 40.8 % (13-45); MEAN CORPUSCULAR HEMOGLOBIN 33.7 pg (27.0-33.4); MEAN CORPUSCULAR HGB CONC 34.6 g/dL (32.0-36.0); MEAN CORPUSCULAR VOLUME 97 fl (80-97); MONOCYTES % (AUTO) 4.7 % (3-13); PLATELET COUNT 111 10^3/uL (150-450); RED BLOOD COUNT 2.86 10^6/uL (4.35-5.55); RED CELL DISTRIBUTION WIDTH 14.7 % (11.5-14.0); TOTAL CELLS COUNTED % (AUTO) 100 %; WHITE BLOOD COUNT 2.2 10^3/uL (4.0-10.5)
[2017-12-16 07:41] LABS: ANION GAP 7 (5-19); BLOOD UREA NITROGEN 14 mg/dL (7-20); CALCIUM 8.5 mg/dL (8.4-10.2); CARBON DIOXIDE 29 mmol/L (22-30); CHLORIDE 105 mmol/L (98-107); GLUCOSE 87 mg/dL (75-110); POTASSIUM 3.9 mmol/L (3.6-5.0); SODIUM 141.3 mmol/L (137-145)
[2017-12-16] MEDS: ATENOLOL 50 MG TABLET PO SCH (09:21)
[2017-12-16] MEDS: ATORVASTATIN CALCIUM 40 MG TABLET PO SCH (09:21)
[2017-12-16] MEDS: ASPIRIN 81 MG TABLET, CHEWABLE PO SCH (09:21)
[2017-12-16] MEDS: DOCUSATE SODIUM 100 MG CAPSULE PO SCH (09:21)
[2017-12-16 14:02] VITALS: BP 106/51
== END 2017-12-16 14:51 | disposition home or self-care (01) | DRG 392 ==
LOC: ER 00:26 → EH 05:41 → 3S 09:33
PROVIDERS: ADMIT Internal Medicine; ATTEND Internal Medicine
DX: K57.92 Diverticulitis of intestine, part unspecified, without perforation or abscess without bleeding (principal); D61.818 Other pancytopenia; D46.9 Myelodysplastic syndrome, unspecified; I25.10 Atherosclerotic heart disease of native coronary artery without angina pectoris; I10 Essential (primary) hypertension; E78.00 Pure hypercholesterolemia, unspecified; I25.2 Old myocardial infarction; Z90.49 Acquired absence of other specified parts of digestive tract; Z95.0 Presence of cardiac pacemaker
CPT/HCPCS: 36415; 74177; 80048; 80053; 81001; 83690; 85025; 86850; 86900; 86901; 87040; 96361; 96365; 96375; 99285; J0744; J1170; J1644; J1885; J2405; J7030; J7040

== ENCOUNTER → 2019-05-15 | Day surgery (SDC) | payer MEDICARE, BC ==
[~2019-05-15] MED LIST: BACITRACIN INJ 50,000 UNIT VIAL ONE; CEFAZOLIN 1 GM/D5W RTU 1 GM/50 ML RTUPB IV ONE; CEFAZOLIN 1 GM/D5W RTU 1 GM/50 ML RTUPB IV PRN; DEXTROSE 5%-1/2 NORMAL SALINE 1,000 ML IV PRN; DIAZEPAM 5 MG TABLET ONE; DIAZEPAM 5 MG TABLET PO PRN; HEPARIN SODIUM,PORCINE/NS/PF 0 UNIT/0 ML RTUINJ IV ONE; LIDOCAINE 0.5% INJ-PF (5 MG/ML) 50 ML SDV ONE; OXYCODONE-ACETAMINOPHEN 5-325 MG TABLET ONE; OXYCODONE-ACETAMINOPHEN 5-325 MG TABLET PO PRN
[2019-05-15 08:52] LABS: HEMATOCRIT 30.1 % (37.9-51.0); HEMOGLOBIN 10.3 g/dL (13.5-17.0); MEAN CORPUSCULAR HEMOGLOBIN 33.1 pg (27.0-33.4); MEAN CORPUSCULAR HGB CONC 34.4 g/dL (32.0-36.0); MEAN CORPUSCULAR VOLUME 96 fl (80-97); RED BLOOD COUNT 3.12 10^6/uL (4.35-5.55); RED CELL DISTRIBUTION WIDTH 15.5 % (11.5-14.0)
--- NOTE | 2019-05-15 09:06 | RADIOLOGY REPORT (SQ) ---
EXAM DESCRIPTION: CHEST SINGLE VIEW COMPLETED DATE/TIME: 05/15/2019 8:32 am REASON FOR STUDY: PREOP COMPARISON: 05/13/2017. EXAM PARAMETERS: NUMBER OF VIEWS: One view. TECHNIQUE: Single frontal radiographic view of the chest acquired. RADIATION DOSE: NA LIMITATIONS: None. FINDINGS: LUNGS AND PLEURA: No opacities, masses or pneumothorax. No pleural effusion. MEDIASTINUM AND HILAR STRUCTURES: No masses. Contour normal. HEART AND VASCULAR STRUCTURES: Heart normal in size. Normal vasculature. BONES: No acute findings. HARDWARE: Pacemaker. OTHER: No other significant finding. IMPRESSION: NO ACUTE RADIOGRAPHIC FINDING IN THE CHEST. TECHNICAL DOCUMENTATION: JOB ID: [id number] [employer]- All Rights Reserved Reading location - IP/workstation name: [email or web address]
[2019-05-15 09:07] VITALS: BP 128/60
[2019-05-15 09:07] LABS: ANION GAP 7 (5-19); BLOOD UREA NITROGEN 19 mg/dL (7-20); CALCIUM 8.9 mg/dL (8.4-10.2); CARBON DIOXIDE 31 mmol/L (22-30); CHLORIDE 99 mmol/L (98-107); GLUCOSE 131 mg/dL (75-110); POTASSIUM 3.8 mmol/L (3.6-5.0)
[2019-05-15 09:35] LABS: PLATELET COUNT 86 10^3/uL (150-450)
[2019-05-15 09:36] LABS: WHITE BLOOD COUNT 0.6 10^3/uL (4.0-10.5)
[2019-05-16 09:47] LABS: PATH REVIEW PATHOLOGIST REVIEWED
== END ==
LOC: CCL 07:55
PROVIDERS: ATTEND Surgery
DX: D46.21 Refractory anemia with excess of blasts 1 (principal); D72.819 Decreased white blood cell count, unspecified; Z79.899 Other long term (current) drug therapy; R50.9 Fever, unspecified
CPT/HCPCS: 36415; 85027; 80048; 71045; C1788; J0690; A9270 ×2; C1752; J1644; J3490; Q9967

== ENCOUNTER 2019-05-22 14:45 | Inpatient (IN) | payer MEDICARE, BC ==
[2019-05-22] MEDS ORDERED: CEFEPIME INJ 1 GM VIAL IV ONE ×2 (15:14→18:15)
[2019-05-22] MEDS ORDERED: VANCOMYCIN HCL INJ 1000 MG VIAL IV ONE ×2 (15:14→18:15)
--- NOTE | 2019-05-22 15:18 | ER Document Report ---
ED Medical Screen (RME) - General Chief Complaint: Abnormal Lab Results Stated Complaint: ABNORMAL LABS Time Seen by Provider: 05/22/19 15:14 Primary Care Provider: TY MAJANO PA-C [Primary Care Provider] - Follow up as needed Information source: Patient Notes: Patient sent here from his oncologist office for concerns about sepsis. Patient is currently being treated for dental infection and has had a fever for the past 11 days. Family states that patient has occasionally been confused. Patient also reports that he has had no white blood cell count as it was lower than 0.06. Family report fever of 102 today. Patient is receiving chemotherapy for myelodysplasia over the past week. I have greeted and performed a rapid initial assessment of this patient. A comprehensive ED assessment and evaluation of the patient, analysis of test results and completion of the medical decision making process will be conducted by additional ED providers. TRAVEL OUTSIDE OF THE [place] IN LAST 30 DAYS: No - Related Data Allergies/Adverse Reactions: No Known Allergies Allergy (Verified 05/15/19 08:22) Past Medical History - Past Medical History Cardiac Medical History: Reports: Hx Coronary Artery Disease - CHOLESTEROL, Hx Heart Attack - MILD, Hx Hypercholesterolemia Denies: Hx Hypertension Pulmonary Medical History: Reports: Hx Pneumonia Denies: Hx Asthma, Hx Bronchitis, Hx COPD Neurological Medical History: Denies: Hx Cerebrovascular Accident, Hx Seizures Renal/ Medical History: Reports: Hx Kidney Stones. 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 EX-LAP 1961, Hx Cardiac Catheterization, Hx Pacemaker, Hx Testicular Surgery - LEFT ORCHIECTOMY WITH RADIATION [place], Other - Partial colon resection 2015 - Immunizations Hx Diphtheria, Pertussis, Tetanus Vaccination: Yes Physical Exam - Vital signs Vitals: Temp Pulse Resp BP Pulse Ox 99.0 F 89 18 123/49 L 96 05/22/19 14:50 05/22/19 14:50 05/22/19 14:50 05/22/19 14:50 05/22/19 14:50 - Respiratory Respiratory status: No respiratory distress Breath sounds: Normal - Cardiovascular Rhythm: Regular Heart sounds: S1 appreciated, S2 appreciated Course - Vital Signs Vital signs: Temp Pulse Resp BP Pulse Ox 99.0 F 89 18 123/49 L 96 05/22/19 14:50 05/22/19 14:50 05/22/19 14:50 05/22/19 14:50 05/22/19 14:50 Doctor's Discharge - Discharge Referrals: TY MAJANO PA-C [Primary Care Provider] - Follow up as needed
[2019-05-22 16:25] LABS: ABSOLUTE LYMPHOCYTES (AUTO) 0.4 10^3/uL (0.5-4.7); ABSOLUTE NEUT (AUTO) 0.2 10^3/uL (1.7-8.2); ALBUMIN 3.1 g/dL (3.5-5.0); ALKALINE PHOSPHATASE 172 U/L (38-126); ANION GAP 9 (5-19); ASPARTATE AMINO TRANSFERASE 40 U/L (17-59); BASOPHILS % (AUTO) 0.5 % (0-2); BILIRUBIN,DIRECT 0.2 mg/dL (0.0-0.4); BILIRUBIN,TOTAL 0.3 mg/dL (0.2-1.3); BLOOD UREA NITROGEN 21 mg/dL (7-20); CALCIUM 8.6 mg/dL (8.4-10.2); CARBON DIOXIDE 28 mmol/L (22-30); CHLORIDE 99 mmol/L (98-107); EOSINOPHILS % (AUTO) 0.5 % (0-6); GLUCOSE 104 mg/dL (75-110); HEMATOCRIT 26.4 % (37.9-51.0); HEMOGLOBIN 8.9 g/dL (13.5-17.0); LYMPHOCYTES % (AUTO) 66.8 % (13-45); MEAN CORPUSCULAR HEMOGLOBIN 32.8 pg (27.0-33.4); MEAN CORPUSCULAR HGB CONC 33.9 g/dL (32.0-36.0); MEAN CORPUSCULAR VOLUME 97 fl (80-97); MONOCYTES % (AUTO) 2.1 % (3-13); PLATELET COUNT 235 10^3/uL (150-450); POTASSIUM 4.1 mmol/L (3.6-5.0); PROTHROMBIN TIME 14.3 SEC (11.4-15.4); RED BLOOD COUNT 2.72 10^6/uL (4.35-5.55); RED CELL DISTRIBUTION WIDTH 15.4 % (11.5-14.0); SEGMENTED NEUTROPHILS % (AUTO) 30.1 % (42-78); TOTAL CELLS COUNTED % (AUTO) 100 %; TOTAL PROTEIN 6.5 g/dL (6.3-8.2)
[2019-05-22 16:42] LABS: ANISOCYTOSIS SLIGHT; POLYCHROMASIA SLIGHT; TEAR DROP CELLS SLIGHT
[2019-05-22 16:43] LABS: PLATELET COMMENT ADEQUATE
[2019-05-22 16:47] LABS: WHITE BLOOD COUNT 0.5 10^3/uL (4.0-10.5)
[2019-05-22] MEDS ORDERED: CEFEPIME 2 GM/D5W RTU 2 GM/50 ML RTUPB IV ONE ×2 (18:15→18:39)
--- NOTE | 2019-05-22 18:15 | RADIOLOGY REPORT (SQ) ---
EXAM DESCRIPTION: CHEST 2 VIEWS COMPLETED DATE/TIME: 05/22/2019 3:54 pm REASON FOR STUDY: fever COMPARISON: 05/15/2019 EXAM PARAMETERS: NUMBER OF VIEWS: two views TECHNIQUE: Digital Frontal and Lateral radiographic views of the chest acquired. RADIATION DOSE: NA LIMITATIONS: none FINDINGS: LUNGS AND PLEURA: No opacities, masses or pneumothorax. No pleural effusion. MEDIASTINUM AND HILAR STRUCTURES: No masses or contour abnormalities. HEART AND VASCULAR STRUCTURES: Heart normal size. No evidence for failure. BONES: No acute findings. HARDWARE: Pacemaker. OTHER: No other significant finding. IMPRESSION: NO ACUTE RADIOGRAPHIC FINDING IN THE CHEST. TECHNICAL DOCUMENTATION: JOB ID: [id number] [employer]- All Rights Reserved Reading location - IP/workstation name: [email or web address]
--- NOTE | 2019-05-22 18:15 | EKG REPORT ---
SEVERITY:- ABNORMAL ECG - ATRIAL-SENSED VENTRICULAR-PACED RHYTHM : Confirmed by: Familia Rey MD 22-May-2019 18:09:04
[2019-05-22] MEDS ORDERED: VANCOMYCIN HCL INJ 1000 MG VIAL ONE (18:40)
[2019-05-22] MEDS ORDERED: VANCOMYCIN HCL INJ 500 MG VIAL ONE (18:40)
[2019-05-22 19:51] LABS: APPEARANCE,URINE CLEAR; BILIRUBIN,URINE NEGATIVE (NEGATIVE); COLOR,URINE YELLOW; GLUCOSE, URINE NEGATIVE (NEGATIVE); KETONES,URINE NEGATIVE (NEGATIVE); LEUKOCYTE ESTERASE,URINE NEGATIVE (NEGATIVE); NITRITE,URINE NEGATIVE (NEGATIVE); PROTEIN,URINE NEGATIVE (NEGATIVE); URINE SPECIFIC GRAVITY 1.011; UROBILINOGEN,URINE NEGATIVE mg/dL (<2.0)
--- NOTE | 2019-05-22 20:18 | ER Document Report ---
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 Patient reported his primary oncologist today, had a document a fever of 102F, was referred to the emergency department for antibiotics and admission. Patient had first course of chemotherapy 3 weeks ago, had daily treatments for 7 days and currently is 2 weeks cycle off. Patient was given Tylenol upon arrival with improvement of fever and weakness. Location: Global Onset: 1 week ago Provocation: Unknown Quality: Cough, fever Radiation: None Severity: Moderate at worst, currently mild Timing: Persistent but improving Associated symptoms: Reports mild seizure with a dry cough, no chest pain or shortness of breath, no dysuria or hematuria, no swelling of extremities, no rash or skin breakdown to his knowledge REVIEW OF SYSTEMS: CONSTITUTIONAL : Positive for fever. Denies recent illness. EENT: Denies eye, ear, throat, or mouth pain or symptoms. Denies nasal or sinus congestion. CARDIOVASCULAR: Denies chest pain. RESPIRATORY: Positive for cough, but no cold or chest congestion. Denies shortness of breath, difficulty breathing, or wheezing. GASTROINTESTINAL: Denies abdominal pain. Denies nausea, vomiting, or diarrhea. Denies constipation. GENITOURINARY: Denies difficulty urinating, painful urination, burning, frequency, or blood in urine. MUSCULOSKELETAL: Denies neck or back pain or joint pain or swelling. SKIN: Denies rash or skin lesions. HEMATOLOGIC : Denies easy bruising or bleeding. LYMPHATIC: Denies swollen, enlarged glands. NEUROLOGICAL: Denies altered mental status or loss of consciousness. Denies headache. Denies weakness or paralysis or loss of use of either side. Denies problems with gait or speech. Denies sensory or motor loss. PSYCHIATRIC: Denies anxiety or stress or depression. All other systems reviewed and negative. PHYSICAL EXAMINATION: GENERAL: Well-appearing, well-nourished and in no acute distress. HEAD: Atraumatic, normocephalic. No scalp deformity, depression, or crepitance. EYES: Pupils are 3 mm and equal/round/reactive to light, extraocular movements intact, sclera anicteric, conjunctiva are normal. ENT: Nares patent bilaterally, oropharynx clear without exudates or palatal petechia. Moist mucous membranes. No tonsil hypertrophy. NECK: Normal range of motion, supple without lymphadenopathy. LUNGS: Breath sounds present, equal, and clear to auscultation bilaterally. No wheezes, rales, or rhonchi. HEART: Regular rate and rhythm without murmurs, rubs, or gallops. 2+ peripheral pulses. Normal capillary refill. ABDOMEN: Soft, nontender, nondistended. Normoactive bowel sounds. No guarding, no rebound. No masses appreciated. BACK: Normal contour, no midline tenderness. Rectal exam deferred. GENITAL: Deferred. EXTREMITIES: Normal range of motion, no pitting or edema. No cyanosis. NEUROLOGICAL: No focal neurological deficits. Moves all extremities spontaneously and on command. PSYCH: Normal mood, normal affect. No suicidal thoughts/ideations. No homicidal thoughts/ideations. No hallucinations. SKIN: Warm, dry, normal turgor, no rashes or lesions noted. ASSESSMENT AND PLAN: This patient is a 84-year-old male who presents with 1 week of fever and dry cough in the setting of recently started chemotherapy for myoplastic syndrome. 1. Will obtain sepsis labs, give empiric IV vancomycin and cefepime, and admit to the hospital. 2. Will initiate fluid resuscitation as indicated. TRAVEL OUTSIDE OF THE [place] IN LAST 30 DAYS: No - HPI Onset: Other - "Fever for the past week" Onset/Duration: Gradual Quality of pain: No pain Severity: Mild Pain Level: Denies Associated symptoms: Nonproductive cough, Fever, Weakness Exacerbated by: Denies Relieved by: Denies Similar symptoms previously: No Recently seen / treated by doctor: Yes - Related Data Allergies/Adverse Reactions: No Known Allergies Allergy (Verified 05/15/19 08:22) Past Medical History - General Information source: Patient, Relative - Social History Smoking Status: Former Smoker Frequency of alcohol use: None Drug Abuse: None Lives with: Family Family History: CAD, Hypertension Patient has suicidal ideation: No Patient has homicidal ideation: No - Past Medical History Cardiac Medical History: Reports: Hx Coronary Artery Disease - CHOLESTEROL, Hx Heart Attack - MILD, Hx Hypercholesterolemia Denies: Hx Hypertension Pulmonary Medical History: Reports: Hx Pneumonia Denies: Hx Asthma, Hx Bronchitis, Hx COPD EENT Medical History: Reports: None Neurological Medical History: Reports: None. Denies: Hx Cerebrovascular Accident, Hx Seizures Endocrine Medical History: Reports: None Renal/ Medical History: Reports: Hx Kidney Stones. 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 EX-LAP 1961, Hx Cardiac Catheterization, Hx Pacemaker, Hx Testicular Surgery - LEFT ORCHIECTOMY WITH RADIATION [place], Other - Partial colon resection 2015 - Immunizations Hx Diphtheria, Pertussis, Tetanus Vaccination: Yes Hx Pneumococcal Vaccination: 08/16/05 Review of Systems - Review of Systems Constitutional: See HPI, Fever, Weakness EENT: No symptoms reported Cardiovascular: No symptoms reported Respiratory: See HPI, Cough Gastrointestinal: No symptoms reported Genitourinary: No symptoms reported Male Genitourinary: No symptoms reported Musculoskeletal: No symptoms reported Skin: No symptoms reported Hematologic/Lymphatic: No symptoms reported Neurological/Psychological: No symptoms reported -: Yes All other systems reviewed and negative Physical Exam - Vital signs Vitals: Temp Pulse Resp BP Pulse Ox 99.0 F 89 18 123/49 L 96 05/22/19 14:50 05/22/19 14:50 05/22/19 14:50 05/22/19 14:50 05/22/19 14:50 Interpretation: Normal Course - Re-evaluation Re-evalutation: 05/22/19 21:11 Blood work shows neutropenia, however both chest x-ray and urine samples are negative. Labs are otherwise unremarkable. Most likely represents viral etiology, however the patient was empirically treated with both IV vancomycin and cefepime and will be admitted to the hospital. - Vital Signs Vital signs: Temp Pulse Resp BP Pulse Ox 99.2 F 98 16 153/65 H 99 05/23/19 00:45 05/23/19 00:45 05/23/19 00:45 05/23/19 00:45 05/23/19 00:45 - Laboratory Result Diagrams: 05/22/19 15:40 05/22/19 15:40 Laboratory results interpreted by me: 05/22/19 05/22/19 15:40 15:40 WBC 0.5 L* RBC 2.72 L Hgb 8.9 L Hct 26.4 L RDW 15.4 H Lymph % (Auto) 66.8 H [place] % (Auto) 2.1 L Absolute Neuts (auto) 0.2 L Absolute Lymphs (auto) 0.4 L Absolute Monos (auto) 0.0 L Seg Neutrophils % 30.1 L Sodium 135.9 L BUN 21 H Alkaline Phosphatase 172 H Albumin 3.1 L - Diagnostic Test Radiology reviewed: Image reviewed, Reports reviewed - EKG Interpretation by Wi EKG shows normal: Sinus rhythm Rate: Normal Rhythm: Other - Paced rhythm [place]/QRS: LBBB Voltage: No: Increased voltage, Consistant with LVH, Decreased voltage, Throughout, Limb leads P Waves: No: MILLIE, LAE, Absent, AV Dissociation, Other Heart block present: No: 1st Degree, Mobitz 1, Mobitz 2, CHB (3rd degree block) When compared to previous EKG there are: No significant change - Consults Dr. Hammonds Time consulted: 21:11 - will admit Consulted provider: will come to ER Discharge - Discharge Clinical Impression: Neutropenic fever Condition: Stable Disposition: ADMITTED INPATIENT Admitting Provider: Nasra (Hospitalist) Unit Admitted: Medical Floor
--- NOTE | 2019-05-22 21:37 | PDOC H&P ---
History of Present Illness Admission Date/PCP: 05/22/2019 21:10 TY MAJANO PA-C Patient complains of: Fever History of Present Illness: ROXY ALANIS is a 84 year old male who presented to the emergency room with an 11-day history of fever. Patient his family admit a fever present on a daily basis for the last 11 days. The fever has been as high as 102 F. Fever has been accompanied by severe night sweats, occasional mild confusion and mild head congestion. He denies other associated or accompanying signs and symptoms. He admits a history of myelodysplasia which was treated with a new chemotherapy agent for the first time 3 weeks ago and he developed his fever 3 to 4 days after his last dose. He notes he received a influenza vaccine the day after his last chemotherapy dose (1 daily x7 days beginning 04/29/2018). He was seen at Dr. Hearn's office today and was sent directly to the emergency room for evaluation, as he was noted to have a fever of 102 F. He denies prior similar episodes and has not identified any other aggravating or ameliorating factor for his fever. In the emergency room the patient was afebrile having received acetaminophen at Dr. Hearn's office. He was noted to have a white count of 600 with a low absolute neutrophil count. He was subsequently admitted to the hospital for further evaluation and treatment of his neutropenic fever. Past Medical History Cardiac Medical History: Reports: Coronary Artery Disease - CHOLESTEROL, Myocardial Infarction - MILD, Hyperlipidema, Other - History of high-grade AV block Denies: Hypertension Pulmonary Medical History: Reports: Pneumonia, Other - Chronic cough Denies: Asthma, Bronchitis, Chronic Obstructive Pulmonary Disease (COPD) EENT Medical History: Denies: Cataracts, Ears - Hearing aids Neurological Medical History: Denies: Hemorrhagic CVA, Ischemic CVA, Seizures Endocrine Medical History: Denies: Diabetes Mellitus Type 1, Diabetes Mellitus Type 2, Hyperthyroidism, Hypothyroidism, Obesity Renal/ Medical History: Denies: Chronic Kidney Disease, Nephrolithiasis Malignancy Medical History: Reports: Other - Myelodysplastic syndrome GI Medical History: Reports: Diverticulitis Denies: Cirrhosis, Crohn's Disease, Hepatitis, Ulcerative Colitis Musculoskeltal Medical History: Denies: Arthritis, Gout Skin Medical History: Denies: Eczema, Psoriasis Psychiatric Medical History: Denies: Alcohol Dependency, Substance Abuse, Tobacco Dependency Traumatic Medical History: Reports: None Hematology: Reports: Anemia - With myelodysplasia, 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, Neutropenia - With chemotherapy, Other - Myelodysplastic syndrome Infectious Medical History: Reports: None Past Surgical History Past Surgical History: Reports: Cardiac Catheterization, Pacemaker, Other - Partial colon resection 2016 Social History Information Source: Patient Lives with: Family Smoking Status: Former Smoker Electronic Cigarette use?: No Frequency of Alcohol Use: Rare Hx Recreational Drug Use: No Drugs: None Hx Prescription Drug Abuse: No - Advance Directive Resuscitation Status: Full Code Surrogate healthcare decision maker:: Maude Tiwari Family History Family History: CAD, Hypertension Parental Family History Reviewed: Yes Children Family History Reviewed: No Sibling(s) Family History Reviewed.: Yes Medication/Allergy Home Medications: Atorvastatin Calcium [Lipitor 40 mg Tablet] 40 mg PO QHS 12/14/17 Cyanocobalamin (Vitamin B-12) [Vitamin B-12 Inj 1000 Mcg/1 ml Vial] 1,000 mcg IM [id number] 12/14/17 Metoprolol Succinate [Toprol Xl 25 mg Tab.sr] 25 mg PO DAILY 12/14/17 Acetaminophen [Tylenol 325 mg Tablet] 650 mg PO Q4HP PRN tablet 12/16/17 Azacitidine [Vidaza Inj/Pf 100 mg Sdv] 100 mg IV ASDIR 05/12/19 Ondansetron HCl in 0.9 % NaCl [Ondansetron 16 mg/100 ml-Ns] 16 mg IV PRN PRN 05/12/19 Ondansetron [Ondansetron Odt] 8 mg PO PRN PRN 05/12/19 Allergies/Adverse Reactions: No Known Allergies Allergy (Verified 05/15/19 08:22) Review of Systems Constitutional: PRESENT: as per HPI, fever(s), night sweats. ABSENT: anorexia, chills Eyes: ABSENT: visual disturbances, other - Eye pain Ears: ABSENT: hearing changes, other - Ear pain Nose, Mouth, and Throat: PRESENT: as per HPI, other - "Head congestion". ABSENT: mouth pain, sore throat Cardiovascular: ABSENT: chest pain, palpitations Respiratory: PRESENT: cough - Chronic. ABSENT: dyspnea, sputum Gastrointestinal: ABSENT: abdominal pain, constipation, diarrhea, nausea, vomiting Genitourinary: ABSENT: dysuria, hematuria Musculoskeletal: ABSENT: back pain, joint swelling, muscle weakness Integumentary: PRESENT: as per HPI, diaphoresis - "Night sweats". ABSENT: pruritus, rash Neurological: PRESENT: as per HPI, confusion. ABSENT: convulsions, focal weakness, memory loss, syncope Psychiatric: ABSENT: anxiety, hallucinations Endocrine: ABSENT: cold intolerance, heat intolerance Hematologic/Lymphatic: ABSENT: easy bleeding, easy bruising Allergic/Immunologic: ABSENT: seasonal rhinorrhea Physical Exam Vital Signs: Temp Pulse Resp BP Pulse Ox 97.9 F 89 17 131/62 H 98 05/22/19 19:33 05/22/19 14:50 05/22/19 19:01 05/22/19 19:01 05/22/19 19:01 Intake & Output 05/20/19 05/21/19 05/22/19 23:59 23:59 23:59 Intake Total 50 Balance 50 Weight 68.9 kg General appearance: PRESENT: no acute distress, cooperative Head exam: PRESENT: atraumatic, normocephalic Eye exam: PRESENT: conjunctiva pink. ABSENT: conjunctival injection, scleral icterus Ear exam: PRESENT: normal external ear exam. ABSENT: bleeding, drainage Mouth exam: PRESENT: dry mucosa, neck supple Neck exam: ABSENT: thyromegaly, tracheal deviation Respiratory exam: PRESENT: clear to auscultation [place], symmetrical, unlabored Cardiovascular exam: PRESENT: RRR, other - Pacemaker noted left anterior subclavicular chest wall. ABSENT: clicks, gallop, rubs Pulses: PRESENT: normal radial pulses, normal dorsalis pedis pul Vascular exam: PRESENT: normal capillary refill. ABSENT: pallor GI/Abdominal exam: PRESENT: normal bowel sounds, soft. ABSENT: tenderness Rectal exam: PRESENT: deferred Extremities exam: ABSENT: joint swelling, pedal edema Musculoskeletal exam: PRESENT: full ROM, normal inspection. ABSENT: tenderness Neurological exam: PRESENT: alert, oriented to person, oriented to place, oriented to time, oriented to situation, CN II-XII grossly intact. ABSENT: motor sensory deficit Psychiatric exam: PRESENT: appropriate affect, normal mood Skin exam: PRESENT: dry, intact, warm. ABSENT: jaundice, rash, urticaria Results Laboratory Results: 05/22/19 15:40 05/22/19 15:40 10/07/19 10/07/19 10/07/19 15:40 15:40 15:40 WBC 0.5 L* RBC 2.72 L Hgb 8.9 L Hct 26.4 L MCV 97 MCH 32.8 MCHC 33.9 RDW 15.4 H Plt Count 235 Seg Neutrophils % 30.1 L VBG pH VBG pCO2 VBG HCO3 VBG Base Excess Sodium 135.9 L Potassium 4.1 Chloride 99 Carbon Dioxide 28 Anion Gap 9 BUN 21 H Creatinine 0.91 Est GFR ( Amer) > 60 Glucose 104 Lactic Acid 0.8 Calcium 8.6 Total Bilirubin 0.3 AST 40 Alkaline Phosphatase 172 H Total Protein 6.5 Albumin 3.1 L Urine Color Urine Appearance Urine pH Ur Specific [place] Urine Protein Urine Glucose (UA) Urine Ketones Urine Blood Urine Nitrite Ur Leukocyte Esterase Urine WBC (Auto) 05/22/19 05/22/19 15:40 19:25 WBC RBC Hgb Hct MCV MCH MCHC RDW Plt Count Seg Neutrophils % VBG pH Cancelled VBG pCO2 Cancelled VBG HCO3 Cancelled VBG Base Excess Cancelled Sodium Potassium Chloride Carbon Dioxide Anion Gap BUN Creatinine Est GFR ( Amer) Glucose Lactic Acid Calcium Total Bilirubin AST Alkaline Phosphatase Total Protein Albumin Urine Color YELLOW Urine Appearance CLEAR Urine pH 6.0 Ur Specific [place] 1.011 Urine Protein NEGATIVE Urine Glucose (UA) NEGATIVE Urine Ketones NEGATIVE Urine Blood NEGATIVE Urine Nitrite NEGATIVE Ur Leukocyte Esterase NEGATIVE Urine WBC (Auto) 1 Impressions: Chest X-Ray 05/22/19 15:14 IMPRESSION: NO ACUTE RADIOGRAPHIC FINDING IN THE CHEST. Status: Image reviewed by me - 2 view chest x-ray shows no acute cardiopulmonary changes however patient is noted to have a hyperexpanded chest and flattened diaphragms consistent with moderate COPD. This interpretation is based upon my reading of the chest x-ray for the day of this admission. Assessment and Plan - Diagnosis (1) Neutropenic fever Is this a current diagnosis for this admission?: Yes (2) Myelodysplastic syndrome Is this a current diagnosis for this admission?: Yes (3) CAD (coronary artery disease) Qualifiers: Coronary Disease-Associated Artery/Lesion type: [place] artery [place] vs. transplanted heart: [place] heart Associated angina: without angina Qualified Code(s): I25.10 - Atherosclerotic heart disease of [place] coronary artery without angina pectoris Is this a current diagnosis for this admission?: Yes (4) Hyperlipidemia Qualifiers: Hyperlipidemia type: unspecified Qualified Code(s): E78.5 - Hyperlipidemia, unspecified Is this a current diagnosis for this admission?: Yes (5) Chronic cough Is this a current diagnosis for this admission?: Yes (6) Chronic obstructive pulmonary disease (COPD) suggested by initial evaluation Is this a current diagnosis for this admission?: Yes - Plan Summary Summary: Patient will be admitted for administration of IV antibiotics utilizing vancomycin and cefepime. A hematology oncology consultation will be obtained with Dr. Hearn. Daily CBCs and metabolic profiles will be obtained. Patient will receive routine supportive and symptomatic cares. He continued on his usual medications for his chronic medical problems. He will receive morphine sulfate 2 to 4 mg IV every 2-4 hours as needed for control of pain via a sliding pain scale. Urine and blood cultures are pending. - Time Time Spent with patient: 25-34 minutes Medications reviewed and adjusted accordingly: Yes Anticipated discharge: Home - Inpatient Certification Based on my medical assessment, after consideration of the patient's comorbidities, presenting symptoms, or acuity I expect that the services needed warrant INPATIENT care.: Yes I certify that my determination is in accordance with my understanding of Medicare's requirements for reasonable and necessary INPATIENT services [42 CFR 412.3e].: Yes Medical Necessity: Need Close Monitoring Due to Risk of Patient Decompensation, Need for IV Antibiotics, Risk of Complication if Not Cared For in Hospital
[2019-05-22] MEDS ORDERED: ONDANSETRON 4 MG TAB.RAPDIS PO PRN (21:40)
[2019-05-22] MEDS ORDERED: MAG HYDROX/AL HYDROX/SIMETH SUSP 30 ML UDCUP PO PRN (21:40)
[2019-05-22] MEDS ORDERED: ONDANSETRON HCL INJ/PF 4 MG/2 ML SDV IV PRN (21:40)
[2019-05-22] MEDS ORDERED: TEMAZEPAM 15 MG CAPSULE PO PRN (21:40)
[2019-05-22] MEDS ORDERED: MAGNESIUM HYDROXIDE SUSP 30 ML UDCUP PO PRN (21:40)
[2019-05-22] MEDS ORDERED: ACETAMINOPHEN 325 MG TABLET PO PRN (21:46)
[2019-05-22] MEDS ORDERED: MORPHINE SULFATE 10 MG/ML INJ IV PRN ×4 (21:46→22:17)
[2019-05-22] MEDS ORDERED: VANCOMYCIN HCL INJ 1000 MG VIAL IV SCH (22:00)
[2019-05-22] MEDS: FAMOTIDINE 20 MG TABLET PO SCH (23:45)
[2019-05-22] MEDS: HEPARIN SOD (PORCINE) 5,000 UNIT/ML 1 ML VIAL SUBCUT SCH (23:45)
[2019-05-23] MEDS ORDERED: LEVALBUTEROL HCL NEB 0.63 MG/3 ML AMPUL NEB PRN (01:45)
[2019-05-23] MEDS ORDERED: GUAIFENESIN/D-METHORPHAN (200-20 MG) SYRUP 10 ML PO PRN (01:48)
[2019-05-23] MEDS ORDERED: CEFEPIME 2 GM/D5W RTU 2 GM/50 ML RTUPB IV ONE (05:19)
[2019-05-23] MEDS: CEFEPIME 2 GM/D5W RTU 2 GM/50 ML RTUPB IV SCH ×2 (05:27→18:53)
[2019-05-23] MEDS: HEPARIN SOD (PORCINE) 5,000 UNIT/ML 1 ML VIAL SUBCUT SCH ×3 (05:27→21:38)
[2019-05-23 07:08] LABS: HEMATOCRIT 23.7 % (37.9-51.0); HEMOGLOBIN 8.2 g/dL (13.5-17.0); MEAN CORPUSCULAR HGB CONC 34.5 g/dL (32.0-36.0); MEAN CORPUSCULAR VOLUME 96 fl (80-97); PLATELET COUNT 230 10^3/uL (150-450); RED BLOOD COUNT 2.48 10^6/uL (4.35-5.55); RED CELL DISTRIBUTION WIDTH 15.5 % (11.5-14.0)
[2019-05-23 07:29] LABS: ANION GAP 7 (5-19); BLOOD UREA NITROGEN 15 mg/dL (7-20); CALCIUM 8.5 mg/dL (8.4-10.2); CARBON DIOXIDE 29 mmol/L (22-30); CHLORIDE 100 mmol/L (98-107); GLUCOSE 109 mg/dL (75-110); POTASSIUM 4.1 mmol/L (3.6-5.0)
[2019-05-23 07:55] LABS: WHITE BLOOD COUNT 0.7 10^3/uL (4.0-10.5)
--- NOTE | 2019-05-23 08:47 | PDOC CONSULTATION ---
Consultation Consult Date: 05/23/19 Provider Consulted: TULIO OCASIO Consult reason:: Hematology/Oncology consultation was requested for patient known to me on active chemo with neutropenic fever. 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 He had been quite stable without any treatment or transfusions until December of this year when counts began to worsen. He was restarted on Vidaza 05/01/2019 (7 days on every 28 days) and is due for his next cycle to begin 05/29/2019. Patient states that he had been running a low-grade fever over the last few weeks, but only 99-100 range. He presented to the office for routine CBC during treatment and was found to have temp of 102 and ANC of 0.2. He was admitted for neutropenic fever and started on Cafapime and Vanc. Patient states that he has a few teeth that are broken and are due to be extracted, but he denies any dental pain. No cough, dyspnea, nausea, diarrhea, or dysuria. Past Medical History Cardiac Medical History: Reports: Coronary Artery Disease - CHOLESTEROL, Myocardial Infarction - MILD, Hyperlipidema, Other - History of high-grade AV block Denies: Hypertension Pulmonary Medical History: Reports: Pneumonia, Other - Chronic cough Denies: Asthma, Bronchitis, Chronic Obstructive Pulmonary Disease (COPD) EENT Medical History: Reports: None, Other - Myelodysplastic syndrome Denies: Cataracts, Ears - Hearing aids Neurological Medical History: Reports: None Denies: Hemorrhagic CVA, Ischemic CVA, Seizures Endocrine Medical History: Reports: None Denies: Diabetes Mellitus Type 1, Diabetes Mellitus Type 2, Hyperthyroidism, Hypothyroidism, Obesity Renal/ Medical History: Denies: Chronic Kidney Disease, Nephrolithiasis Malignancy Medical History: Reports: Other - Myelodysplastic syndrome GI Medical History: Reports: None, Diverticulitis Denies: Cirrhosis, Crohn's Disease, Hepatitis, Ulcerative Colitis Musculoskeltal Medical History: Reports: None Denies: Arthritis, Gout Skin Medical History: Reports: None Denies: Eczema, Psoriasis Psychiatric Medical History: Reports: None Denies: Alcohol Dependency, Substance Abuse, Tobacco Dependency Traumatic Medical History: Reports: None Hematology: Reports: Anemia - With myelodysplasia, 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, Neutropenia - With chemotherapy, Other - Myelodysplastic syndrome Infectious Medical History: Reports: None Past Surgical History Past Surgical History: Reports: Cardiac Catheterization, Pacemaker, Other - Partial colon resection 2015 Social History Lives with: Family Smoking Status: Former Smoker Electronic Cigarette use?: No Frequency of Alcohol Use: Rare Hx Recreational Drug Use: No Drugs: None Hx Prescription Drug Abuse: No - Advance Directive Resuscitation Status: Full Code Family History Family History: CAD, Hypertension Parental Family History Reviewed: Yes - Father with Leukemia age 69. Children Family History Reviewed: No Sibling(s) Family History Reviewed.: Yes - Brother with CAD. Medication/Allergy Home Medications: Atorvastatin Calcium [Lipitor 40 mg Tablet] 40 mg PO QHS 12/14/17 Cyanocobalamin (Vitamin B-12) [Vitamin B-12 Inj 1000 Mcg/1 ml Vial] 1,000 mcg IM [id number] 12/14/17 Metoprolol Succinate [Toprol Xl 25 mg Tab.sr] 25 mg PO DAILY 12/14/17 Acetaminophen [Tylenol 325 mg Tablet] 650 mg PO Q4HP PRN tablet 12/16/17 Azacitidine [Vidaza Inj/Pf 100 mg Sdv] 100 mg IV ASDIR 05/12/19 Ondansetron HCl in 0.9 % NaCl [Ondansetron 16 mg/100 ml-Ns] 16 mg IV PRN PRN 05/12/19 Ondansetron [Ondansetron Odt] 8 mg PO PRN PRN 05/12/19 Allergies/Adverse Reactions: No Known Allergies Allergy (Verified 05/15/19 08:22) Review of Systems Constitutional: PRESENT: fever(s). ABSENT: headache(s) Eyes: ABSENT: visual disturbances Ears: ABSENT: hearing changes Nose, Mouth, and Throat: ABSENT: sore throat Cardiovascular: ABSENT: chest pain Respiratory: ABSENT: dyspnea Gastrointestinal: ABSENT: abdominal pain, nausea Genitourinary: ABSENT: dysuria Integumentary: ABSENT: rash Neurological: ABSENT: frequent falls, weakness Hematologic/Lymphatic: ABSENT: easy bleeding Physical Exam Vital Signs: Temp Pulse Resp BP Pulse Ox 98.3 F 81 16 133/60 H 93 05/23/19 07:47 05/23/19 07:47 05/23/19 07:47 05/23/19 07:47 05/23/19 07:47 Intake & Output 05/22/19 05/23/19 05/24/19 06:59 06:59 06:59 Intake Total 100 Balance 100 Weight 68 kg General appearance: PRESENT: well-developed, well-nourished Exam: 84 year old male. Head exam: PRESENT: normocephalic Eye exam: PRESENT: EOMI Mouth exam: PRESENT: tongue midline Neck exam: ABSENT: lymphadenopathy, tenderness Respiratory exam: PRESENT: clear to auscultation belen, unlabored Cardiovascular exam: PRESENT: RRR GI/Abdominal exam: PRESENT: soft. ABSENT: tenderness Extremities exam: ABSENT: pedal edema Neurological exam: PRESENT: alert, awake, oriented to person, oriented to place, oriented to time, oriented to situation Psychiatric exam: PRESENT: appropriate affect Skin exam: PRESENT: normal color Results Laboratory Results: 05/23/19 06:01 05/23/19 06:01 05/22/19 05/22/19 05/22/19 15:40 15:40 15:40 WBC 0.5 L* RBC 2.72 L Hgb 8.9 L Hct 26.4 L MCV 97 MCH 32.8 MCHC 33.9 RDW 15.4 H Plt Count 235 Seg Neutrophils % 30.1 L VBG pH VBG pCO2 VBG HCO3 VBG Base Excess Sodium 135.9 L Potassium 4.1 Chloride 99 Carbon Dioxide 28 Anion Gap 9 BUN 21 H Creatinine 0.91 Est GFR ( Amer) > 60 Glucose 104 Lactic Acid 0.8 Calcium 8.6 Magnesium Total Bilirubin 0.3 AST 40 Alkaline Phosphatase 172 H Total Protein 6.5 Albumin 3.1 L Urine Color Urine Appearance Urine pH Ur Specific [place] Urine Protein Urine Glucose (UA) Urine Ketones Urine Blood Urine Nitrite Ur Leukocyte Esterase Urine WBC (Auto) 05/22/19 05/22/19 05/23/19 15:40 19:25 06:01 WBC 0.7 L* RBC 2.48 L Hgb 8.2 L Hct 23.7 L MCV 96 MCH 33.0 MCHC 34.5 RDW 15.5 H Plt Count 230 Seg Neutrophils % VBG pH Cancelled VBG pCO2 Cancelled VBG HCO3 Cancelled VBG Base Excess Cancelled Sodium Potassium Chloride Carbon Dioxide Anion Gap BUN Creatinine Est GFR ( Amer) Glucose Lactic Acid Calcium Magnesium Total Bilirubin AST Alkaline Phosphatase Total Protein Albumin Urine Color YELLOW Urine Appearance CLEAR Urine pH 6.0 Ur Specific [place] 1.011 Urine Protein NEGATIVE Urine Glucose (UA) NEGATIVE Urine Ketones NEGATIVE Urine Blood NEGATIVE Urine Nitrite NEGATIVE Ur Leukocyte Esterase NEGATIVE Urine WBC (Auto) 1 05/23/19 06:01 WBC RBC Hgb Hct MCV MCH MCHC RDW Plt Count Seg Neutrophils % VBG pH VBG pCO2 VBG HCO3 VBG Base Excess Sodium 135.5 L Potassium 4.1 Chloride 100 Carbon Dioxide 29 Anion Gap 7 BUN 15 Creatinine 0.70 Est GFR ( Amer) > 60 Glucose 109 Lactic Acid Calcium 8.5 Magnesium 1.9 Total Bilirubin AST Alkaline Phosphatase Total Protein Albumin Urine Color Urine Appearance Urine pH Ur Specific [place] Urine Protein Urine Glucose (UA) Urine Ketones Urine Blood Urine Nitrite Ur Leukocyte Esterase Urine WBC (Auto) Impressions: Chest X-Ray 05/22/19 15:14 IMPRESSION: NO ACUTE RADIOGRAPHIC FINDING IN THE CHEST. Assessment & Plan - Diagnosis (1) Myelodysplastic syndrome Is this a current diagnosis for this admission?: Yes Plan: Due for Vidaza again next week, but this will be held while febrile. Transfuse as indicated. HGB currently stable and >8. PLT normal. (2) Neutropenic fever Is this a current diagnosis for this admission?: Yes Plan: Agree with Cefapime. Await culture results, but will stop Vanc after another 24 hours if possible. Consider doxycycline or other coverage for dental source, if fevers persist. - Plan Summary Plan Summary: Will delay dental procedures while febrile. Please call with any concerns.
[2019-05-23 10:19] LABS: PATH REVIEW PATHOLOGIST REVIEWED
[2019-05-23] MEDS: VANCOMYCIN HCL 1,000 MG in DEXTROSE 5%-WATER 250 ML IV SCH ×2 (11:17→21:38)
[2019-05-23] MEDS: DOCUSATE SODIUM 100 MG CAPSULE PO SCH ×2 (11:18→18:53)
[2019-05-23] MEDS: FAMOTIDINE 20 MG TABLET PO SCH ×2 (11:18→21:38)
--- NOTE | 2019-05-23 15:47 | RADIOLOGY REPORT (SQ) ---
EXAM DESCRIPTION: CT CHEST WITHOUT COMPLETED DATE/TIME: 05/23/2019 3:28 pm REASON FOR STUDY: FUO, left base crackles COMPARISON: Chest x-ray dated 05/22/2019 TECHNIQUE: CT scan performed of the chest without intravenous contrast. Images reviewed with lung, soft tissue and bone windows. Reconstructed coronal and sagittal MPR images reviewed. All images st ored on PACS. All CT scanners at this facility use dose modulation, iterative reconstruction, and/or weight based d osing when appropriate to reduce radiation dose to as low as reasonably achievable (ALARA). [facility]: Dose Right [facility]: CareDose [facility]: Dose Right [facility]: Teradose 4D [facility]: [employer] RADIATION DOSE: CT Rad equipment meets quality standard of care and radiation dose reduction techniq ues were employed. CTDIvol: 6.1 mGy. DLP: 259 mGy-cm. mGy. LIMITATIONS: No technical limitations. FINDINGS: LUNGS AND PLEURA: Probable scarring in both lung apices. There is patchy airspace disease in the left upper lobe separate from the apex. Mild nodular infiltrate in the right upper lobe as w ell. There is lingular airspace disease. The lung bases are grossly clear. No effusions. HILAR AND MEDIASTINAL STRUCTURES: There are numerous small mediastinal nodes most likely reactive. HEART AND VASCULAR STRUCTURES: No aneurysm. No pericardial effusion. UPPER ABDOMEN: No significant findings. Limited exam. THYROID AND OTHER SOFT TISSUES: No masses. No adenopathy. BONES: No significant finding. HARDWARE: Battery pack and leads are in place. OTHER: No other significant findings. IMPRESSION: Patchy airspace disease in both upper lobes and lingula. Most likely infectious or infl ammatory process. No dense consolidation. No effusions. There is mediastinal adenopathy most likel y reactive. TECHNICAL DOCUMENTATION: JOB ID: [id number] Quality ID # [id number]: Final reports with documentation of one or more dose reduction techniques (e.g., Au tomated exposure control, adjustment of the mA and/or kV according to patient size, use of iterative reconstruction technique) 2010 [employer]- All Rights Reserved Reading location - IP/workstation name: [email or web address]
--- NOTE | 2019-05-23 18:48 | PDOC PROGRESS REPORT ---
Subjective Progress Note for:: 05/23/19 Subjective:: No acute event overnight. He is comfortable upon encounter. He denies acute complaints but does report he has been having minimally productive cough in the past few weeks. Chest x-ray did not show any infiltrate or pneumonia however on exam he has subtle rales on the left mid-lower lung field. Will pursue a chest CT to rule out occult pneumonia for potential source of his neutropenic fever. Reason For Visit: NEUTROPENIC FEVER Physical Exam Vital Signs: Temp Pulse Resp BP Pulse Ox 99.1 F 80 16 146/63 H 99 05/23/19 15:44 05/23/19 15:44 05/23/19 15:44 05/23/19 15:44 05/23/19 15:44 Intake & Output 05/22/19 05/23/19 05/24/19 06:59 06:59 06:59 Intake Total 100 1188 Balance 100 1188 Weight 149 lb 14.629 oz General appearance: PRESENT: no acute distress, well-developed, well-nourished Head exam: PRESENT: atraumatic, normocephalic Eye exam: PRESENT: conjunctiva pink, EOMI, PERRLA. ABSENT: scleral icterus Ear exam: PRESENT: normal external ear exam Mouth exam: PRESENT: moist, tongue midline Neck exam: ABSENT: carotid bruit, JVD, lymphadenopathy, thyromegaly Respiratory exam: PRESENT: rales, rhonchi. ABSENT: wheezes Cardiovascular exam: PRESENT: RRR. ABSENT: diastolic murmur, rubs, systolic murmur Pulses: PRESENT: normal dorsalis pedis pul GI/Abdominal exam: PRESENT: normal bowel sounds, soft. ABSENT: distended, guarding, mass, organolmegaly, rebound, tenderness Rectal exam: PRESENT: deferred Extremities exam: PRESENT: full ROM. ABSENT: calf tenderness, clubbing, pedal edema Neurological exam: PRESENT: alert, awake, oriented to person, oriented to place, oriented to time, oriented to situation, CN II-XII grossly intact. ABSENT: motor sensory deficit Results Laboratory Results: 05/23/19 06:01 05/23/19 06:01 05/22/19 05/23/19 05/23/19 19:25 06:01 06:01 WBC 0.7 L* RBC 2.48 L Hgb 8.2 L Hct 23.7 L MCV 96 MCH 33.0 MCHC 34.5 RDW 15.5 H Plt Count 230 Sodium 135.5 L Potassium 4.1 Chloride 100 Carbon Dioxide 29 Anion Gap 7 BUN 15 Creatinine 0.70 Est GFR ( Amer) > 60 Glucose 109 Calcium 8.5 Magnesium 1.9 Urine Color YELLOW Urine Appearance CLEAR Urine pH 6.0 Ur Specific [place] 1.011 Urine Protein NEGATIVE Urine Glucose (UA) NEGATIVE Urine Ketones NEGATIVE Urine Blood NEGATIVE Urine Nitrite NEGATIVE Ur Leukocyte Esterase NEGATIVE Urine WBC (Auto) 1 Impressions: Chest X-Ray 05/22/19 15:14 IMPRESSION: NO ACUTE RADIOGRAPHIC FINDING IN THE CHEST. Chest CT 05/23/19 12:11 IMPRESSION: Patchy airspace disease in both upper lobes and lingula. Most likely infectious or inflammatory process. No dense consolidation. No effusions. There is mediastinal adenopathy most likely reactive. Assessment and Plan - Diagnosis (1) Neutropenic fever Is this a current diagnosis for this admission?: Yes Plan: Continue vancomycin and cefepime. Await final culture results. Chest x-ray did not show any infiltrate or pneumonia however on exam he has subtle rales on the left mid-lower lung field. Will pursue a chest CT to rule out occult pneumonia for potential source of his neutropenic fever. (2) CAD (coronary artery disease) Qualifiers: Coronary Disease-Associated Artery/Lesion type: [place] artery [place] vs. transplanted heart: [place] heart Associated angina: without angina Qualified Code(s): I25.10 - Atherosclerotic heart disease of [place] coronary artery without angina pectoris Is this a current diagnosis for this admission?: Yes (3) Myelodysplastic syndrome Is this a current diagnosis for this admission?: Yes - Time Time Spent with patient: 25-34 minutes
[2019-05-23] MEDS: ACETYLCYSTEINE 10% NEB 400 MG/4 ML VIAL NEB SCH (20:46)
[2019-05-24] MEDS: ACETYLCYSTEINE 10% NEB 400 MG/4 ML VIAL NEB SCH ×4 (02:28→21:06)
[2019-05-24] MEDS: LEVALBUTEROL HCL NEB 0.63 MG/3 ML AMPUL NEB PRN ×4 (02:28→21:06)
[2019-05-24] MEDS: HEPARIN SOD (PORCINE) 5,000 UNIT/ML 1 ML VIAL SUBCUT SCH ×3 (05:18→21:25)
[2019-05-24] MEDS: CEFEPIME 2 GM/D5W RTU 2 GM/50 ML RTUPB IV SCH ×2 (05:21→17:55)
[2019-05-24 08:04] LABS: HEMATOCRIT 25.2 % (37.9-51.0); HEMOGLOBIN 8.8 g/dL (13.5-17.0); MEAN CORPUSCULAR HGB CONC 34.7 g/dL (32.0-36.0); MEAN CORPUSCULAR VOLUME 95 fl (80-97); PLATELET COUNT 300 10^3/uL (150-450); RED BLOOD COUNT 2.66 10^6/uL (4.35-5.55); RED CELL DISTRIBUTION WIDTH 15.2 % (11.5-14.0)
[2019-05-24 08:20] LABS: ANION GAP 8 (5-19); BLOOD UREA NITROGEN 12 mg/dL (7-20); CALCIUM 8.7 mg/dL (8.4-10.2); CARBON DIOXIDE 29 mmol/L (22-30); CHLORIDE 101 mmol/L (98-107); GLUCOSE 110 mg/dL (75-110); POTASSIUM 4.3 mmol/L (3.6-5.0)
[2019-05-24 08:39] LABS: WHITE BLOOD COUNT 1.1 10^3/uL (4.0-10.5)
[2019-05-24] MEDS: DOCUSATE SODIUM 100 MG CAPSULE PO SCH ×2 (09:30→17:55)
[2019-05-24] MEDS: FAMOTIDINE 20 MG TABLET PO SCH ×2 (09:31→21:25)
[2019-05-24] MEDS: VANCOMYCIN HCL 1,000 MG in DEXTROSE 5%-WATER 250 ML IV SCH (09:31)
[2019-05-24 10:35] LABS: VANCOMYCIN,TROUGH 10.5 ug/mL (5.0-20.0)
--- NOTE | 2019-05-24 15:21 | PDOC PROGRESS REPORT ---
Subjective Progress Note for:: 05/24/19 Subjective:: Patient feeling better today. He is worried about his blood work. He is up walking in room, but not in [place]. ROS: Some cough. No dyspnea. No nausea. No dysuria. Reason For Visit: NEUTROPENIC FEVER Physical Exam Vital Signs: Temp Pulse Resp BP Pulse Ox 98.1 F 73 15 130/59 H 97 05/24/19 10:56 05/24/19 14:06 05/24/19 14:06 05/24/19 10:56 05/24/19 14:06 Intake & Output 05/23/19 05/24/19 05/25/19 06:59 06:59 06:59 Intake Total 100 2393 250 Balance 100 2393 250 Weight 68 kg 69.2 kg General appearance: PRESENT: thin Head exam: PRESENT: normocephalic Respiratory exam: PRESENT: crackles - right base Cardiovascular exam: PRESENT: RRR GI/Abdominal exam: PRESENT: soft. ABSENT: tenderness Neurological exam: PRESENT: alert, awake Psychiatric exam: PRESENT: appropriate affect Skin exam: PRESENT: normal color Results Laboratory Results: 05/24/19 07:27 05/24/19 07:27 05/24/19 05/24/19 07:27 07:27 WBC 1.1 L* RBC 2.66 L Hgb 8.8 L Hct 25.2 L MCV 95 MCH 33.0 MCHC 34.7 RDW 15.2 H Plt Count 300 Sodium 137.8 Potassium 4.3 Chloride 101 Carbon Dioxide 29 Anion Gap 8 BUN 12 Creatinine 0.76 Est GFR ( Amer) > 60 Glucose 110 Calcium 8.7 Magnesium 2.1 05/23/19 21:42 Sputum Gram Stain - Final 05/23/19 21:42 Sputum Sputum Culture - Final 05/22/19 19:25 Clean Catch Midstream Urine Culture - Final NO GROWTH 2 DAYS Impressions: Chest X-Ray 05/22/19 15:14 IMPRESSION: NO ACUTE RADIOGRAPHIC FINDING IN THE CHEST. Chest CT 05/23/19 12:11 IMPRESSION: Patchy airspace disease in both upper lobes and lingula. Most likely infectious or inflammatory process. No dense consolidation. No effusions. There is mediastinal adenopathy most likely reactive. Assessment & Plan - Diagnosis (1) Myelodysplastic syndrome Is this a current diagnosis for this admission?: Yes Plan: Vidaza scheduled to restart next week, but will hold until pneumonia has cleared. (2) Neutropenic fever Is this a current diagnosis for this admission?: Yes Plan: CT scans show probable pneumonia. He is on antibiotics. I am still awaiting ANC from today. but WBC count is improving. No further fever. I would prefer to keep patient in hospital until ANC >1.0. Will continue to follow. - Time Time Spent with patient: Less than 15 minutes
[2019-05-24 15:26] LABS: ABSOLUTE LYMPHOCYTES# (MANUAL) 0.7 10^3/uL (0.5-4.7); ABSOLUTE MONOCYTES # (MANUAL) 0.1 10^3/uL (0.1-1.4); ANISOCYTOSIS SLIGHT; BASOPHILS % (MANUAL) 0 % (0-2); EOSINOPHILS % (MANUAL) 0 % (0-6); LYMPHOCYTES % (MANUAL) 62 % (13-45); MONOCYTES % (MANUAL) 6 % (3-13); POIKILOCYTOSIS SLIGHT; POLYCHROMASIA SLIGHT; SEGMENTED NEUTROPHILS % (MAN) 32 % (42-78); TOTAL CELLS COUNTED 100
[2019-05-24 15:27] LABS: PLATELET COMMENT ADEQUATE
[2019-05-24] MEDS: VANCOMYCIN HCL 750 MG in DEXTROSE 5%-WATER 250 ML IV SCH ×2 (15:38→21:26)
--- NOTE | 2019-05-24 16:28 | PDOC PROGRESS REPORT ---
Subjective Progress Note for:: 05/24/19 Subjective:: 05/23: He is comfortable upon encounter. He denies acute complaints but does report he has been having minimally productive cough in the past few weeks. Chest x-ray did not show any infiltrate or pneumonia however on exam he has subtle rales on the left mid-lower lung field. Will pursue a chest CT to rule out occult pneumonia for potential source of his neutropenic fever. 05/24: No acute event overnight. No recurrence of fever overnight. Denies acute complaints. Chest CT showed possible bilateral upper lobe pneumonia. Sputum AFB also ordered. Reason For Visit: NEUTROPENIC FEVER Physical Exam Vital Signs: Temp Pulse Resp BP Pulse Ox 98.1 F 73 15 130/59 H 97 05/24/19 10:56 05/24/19 14:06 05/24/19 14:06 05/24/19 10:56 05/24/19 14:06 Intake & Output 05/23/19 05/24/19 05/25/19 06:59 06:59 06:59 Intake Total 100 2393 250 Balance 100 2393 250 Weight 149 lb 14.629 oz 152 lb 8.958 oz General appearance: PRESENT: no acute distress, well-developed, well-nourished Head exam: PRESENT: atraumatic, normocephalic Eye exam: PRESENT: conjunctiva pink, EOMI, PERRLA. ABSENT: scleral icterus Ear exam: PRESENT: normal external ear exam Mouth exam: PRESENT: moist, tongue midline Neck exam: ABSENT: carotid bruit, JVD, lymphadenopathy, thyromegaly Respiratory exam: PRESENT: rhonchi. ABSENT: rales, wheezes Cardiovascular exam: PRESENT: RRR. ABSENT: diastolic murmur, rubs, systolic murmur Pulses: PRESENT: normal dorsalis pedis pul GI/Abdominal exam: PRESENT: normal bowel sounds, soft. ABSENT: distended, guarding, mass, organolmegaly, rebound, tenderness Rectal exam: PRESENT: deferred Extremities exam: PRESENT: full ROM. ABSENT: calf tenderness, clubbing, pedal edema Neurological exam: PRESENT: alert, awake, oriented to person, oriented to place, oriented to time, oriented to situation, CN II-XII grossly intact. ABSENT: motor sensory deficit Results Laboratory Results: 05/24/19 07:27 05/24/19 07:27 05/24/19 05/24/19 07:27 07:27 WBC 1.1 L* RBC 2.66 L Hgb 8.8 L Hct 25.2 L MCV 95 MCH 33.0 MCHC 34.7 RDW 15.2 H Plt Count 300 Seg Neutrophils % Not Reportable Sodium 137.8 Potassium 4.3 Chloride 101 Carbon Dioxide 29 Anion Gap 8 BUN 12 Creatinine 0.76 Est GFR ( Amer) > 60 Glucose 110 Calcium 8.7 Magnesium 2.1 05/23/19 21:42 Sputum Gram Stain - Final 05/23/19 21:42 Sputum Sputum Culture - Final 05/22/19 19:25 Clean Catch Midstream Urine Culture - Final NO GROWTH 2 DAYS Impressions: Chest X-Ray 05/22/19 15:14 IMPRESSION: NO ACUTE RADIOGRAPHIC FINDING IN THE CHEST. Chest CT 05/23/19 12:11 IMPRESSION: Patchy airspace disease in both upper lobes and lingula. Most likely infectious or inflammatory process. No dense consolidation. No effusions. There is mediastinal adenopathy most likely reactive. Assessment and Plan - Diagnosis (1) Neutropenic fever Is this a current diagnosis for this admission?: Yes Plan: 05/23: Continue vancomycin and cefepime. Await final culture results. Chest x- ray did not show any infiltrate or pneumonia however on exam he has subtle rales on the left mid-lower lung field. Will pursue a chest CT to rule out occult pneumonia for potential source of his neutropenic fever. 05/24: Chest CT showed possible bilateral upper lobe pneumonia. WBC improving. (2) CAD (coronary artery disease) Qualifiers: Coronary Disease-Associated Artery/Lesion type: [place] artery [place] vs. transplanted heart: [place] heart Associated angina: without angina Qualified Code(s): I25.10 - Atherosclerotic heart disease of [place] coronary artery without angina pectoris Is this a current diagnosis for this admission?: Yes (3) Myelodysplastic syndrome Is this a current diagnosis for this admission?: Yes (4) Pneumonia Qualifiers: Laterality: bilateral Lung location: upper lobe of lung Is this a current diagnosis for this admission?: Yes Plan: Continue IV antibiotics. Sputum culture pending. Sputum AFB also added. - Time Time Spent with patient: 25-34 minutes
[2019-05-25] MEDS: ACETYLCYSTEINE 10% NEB 400 MG/4 ML VIAL NEB SCH ×4 (03:39→20:32)
[2019-05-25] MEDS: LEVALBUTEROL HCL NEB 0.63 MG/3 ML AMPUL NEB PRN ×4 (03:39→20:32)
[2019-05-25] MEDS ORDERED: CEFEPIME 2 GM/D5W RTU 2 GM/50 ML RTUPB IV ONE (05:22)
[2019-05-25] MEDS: CEFEPIME 2 GM/D5W RTU 2 GM/50 ML RTUPB IV SCH ×2 (05:33→17:17)
[2019-05-25] MEDS: HEPARIN SOD (PORCINE) 5,000 UNIT/ML 1 ML VIAL SUBCUT SCH ×3 (05:36→21:24)
[2019-05-25] MEDS: VANCOMYCIN HCL 750 MG in DEXTROSE 5%-WATER 250 ML IV SCH ×3 (06:25→21:24)
[2019-05-25 06:28] LABS: HEMATOCRIT 24.9 % (37.9-51.0); HEMOGLOBIN 8.6 g/dL (13.5-17.0); MEAN CORPUSCULAR HEMOGLOBIN 32.9 pg (27.0-33.4); MEAN CORPUSCULAR HGB CONC 34.6 g/dL (32.0-36.0); MEAN CORPUSCULAR VOLUME 95 fl (80-97); PLATELET COUNT 321 10^3/uL (150-450); RED BLOOD COUNT 2.61 10^6/uL (4.35-5.55); RED CELL DISTRIBUTION WIDTH 15.5 % (11.5-14.0)
[2019-05-25 06:35] LABS: WHITE BLOOD COUNT 1.1 10^3/uL (4.0-10.5)
[2019-05-25 06:40] LABS: ANION GAP 8 (5-19); BLOOD UREA NITROGEN 13 mg/dL (7-20); CALCIUM 9.1 mg/dL (8.4-10.2); CARBON DIOXIDE 29 mmol/L (22-30); CHLORIDE 101 mmol/L (98-107); GLUCOSE 115 mg/dL (75-110); POTASSIUM 4.3 mmol/L (3.6-5.0)
[2019-05-25 07:07] LABS: ABSOLUTE LYMPHOCYTES# (MANUAL) 0.8 10^3/uL (0.5-4.7); ABSOLUTE MONOCYTES # (MANUAL) 0.1 10^3/uL (0.1-1.4); ANISOCYTOSIS SLIGHT; BASOPHILS % (MANUAL) 2 % (0-2); EOSINOPHILS % (MANUAL) 2 % (0-6); LYMPHOCYTES % (MANUAL) 68 % (13-45); MONOCYTES % (MANUAL) 6 % (3-13); NUCLEATED RED BLOOD CELLS 2 /100 WBC (0); SEGMENTED NEUTROPHILS % (MAN) 20 % (42-78); TOTAL CELLS COUNTED 50
[2019-05-25 07:08] LABS: PLATELET COMMENT ADEQUATE; TEAR DROP CELLS SLIGHT
[2019-05-25] MEDS: DOCUSATE SODIUM 100 MG CAPSULE PO SCH ×2 (10:20→17:17)
[2019-05-25] MEDS: FAMOTIDINE 20 MG TABLET PO SCH ×2 (10:20→21:25)
--- NOTE | 2019-05-25 13:39 | PDOC PROGRESS REPORT ---
Subjective Progress Note for:: 05/25/19 Subjective:: 05/23: He is comfortable upon encounter. He denies acute complaints but does report he has been having minimally productive cough in the past few weeks. Chest x-ray did not show any infiltrate or pneumonia however on exam he has subtle rales on the left mid-lower lung field. Will pursue a chest CT to rule out occult pneumonia for potential source of his neutropenic fever. 05/24: No recurrence of fever overnight. Denies acute complaints. Chest CT showed possible bilateral upper lobe pneumonia. Sputum AFB also ordered. 05/25: No acute event overnight. No recurrence of fever. He denies acute complaint. WBC the same from yesterday at 1.1. ANC at 0.2 today. Reason For Visit: NEUTROPENIC FEVER Physical Exam Vital Signs: Temp Pulse Resp BP Pulse Ox 97.8 F 76 16 119/62 98 05/25/19 11:57 05/25/19 11:57 05/25/19 11:57 05/25/19 11:57 05/25/19 11:57 Intake & Output 05/24/19 05/25/19 05/26/19 06:59 06:59 06:59 Intake Total 2393 1810 250 Balance 2393 1810 250 Weight 152 lb 8.958 oz 152 lb 8.958 oz General appearance: PRESENT: no acute distress, well-developed, well-nourished Head exam: PRESENT: atraumatic, normocephalic Eye exam: PRESENT: conjunctiva pink, EOMI, PERRLA. ABSENT: scleral icterus Ear exam: PRESENT: normal external ear exam Mouth exam: PRESENT: moist, tongue midline Neck exam: ABSENT: carotid bruit, JVD, lymphadenopathy, thyromegaly Respiratory exam: PRESENT: rhonchi. ABSENT: rales, wheezes Cardiovascular exam: PRESENT: RRR. ABSENT: diastolic murmur, rubs, systolic murmur Pulses: PRESENT: normal dorsalis pedis pul GI/Abdominal exam: PRESENT: normal bowel sounds, soft. ABSENT: distended, guarding, mass, organolmegaly, rebound, tenderness Rectal exam: PRESENT: deferred Extremities exam: PRESENT: full ROM. ABSENT: calf tenderness, clubbing, pedal edema Neurological exam: PRESENT: alert, awake, oriented to person, oriented to place, oriented to time, oriented to situation, CN II-XII grossly intact. ABSENT: motor sensory deficit Results Laboratory Results: 05/25/19 05:44 05/25/19 05:44 05/24/19 05/25/19 05/25/19 07:27 05:44 05:44 WBC 1.1 L* 1.1 L* RBC 2.66 L 2.61 L Hgb 8.8 L 8.6 L Hct 25.2 L 24.9 L MCV 95 95 MCH 33.0 32.9 MCHC 34.7 34.6 RDW 15.2 H 15.5 H Plt Count 300 321 Seg Neutrophils % Not Reportable Not Reportable Sodium 138.2 Potassium 4.3 Chloride 101 Carbon Dioxide 29 Anion Gap 8 BUN 13 Creatinine 0.80 Est GFR ( Amer) > 60 Glucose 115 H Calcium 9.1 Magnesium 2.1 05/23/19 21:42 Sputum Gram Stain - Final 05/23/19 21:42 Sputum Sputum Culture - Final 05/22/19 19:25 Clean Catch Midstream Urine Culture - Final NO GROWTH 2 DAYS Impressions: Chest X-Ray 05/22/19 15:14 IMPRESSION: NO ACUTE RADIOGRAPHIC FINDING IN THE CHEST. Chest CT 05/23/19 12:11 IMPRESSION: Patchy airspace disease in both upper lobes and lingula. Most likely infectious or inflammatory process. No dense consolidation. No effusions. There is mediastinal adenopathy most likely reactive. Assessment and Plan - Diagnosis (1) Neutropenic fever Is this a current diagnosis for this admission?: Yes Plan: 05/23: Continue vancomycin and cefepime. Await final culture results. Chest x- ray did not show any infiltrate or pneumonia however on exam he has subtle rales on the left mid-lower lung field. Will pursue a chest CT to rule out occult pneumonia for potential source of his neutropenic fever. 05/24: Chest CT showed possible bilateral upper lobe pneumonia. WBC improving. 05/25: WBC the same from yesterday at 1.1. ANC at 0.2 today. (2) Pneumonia Qualifiers: Laterality: bilateral Lung location: upper lobe of lung Is this a current diagnosis for this admission?: Yes Plan: Continue IV antibiotics. Sputum culture pending. Sputum AFB also added. (3) CAD (coronary artery disease) Qualifiers: Coronary Disease-Associated Artery/Lesion type: [place] artery [place] vs. transplanted heart: [place] heart Associated angina: without angina Qualified Code(s): I25.10 - Atherosclerotic heart disease of [place] coronary artery wi thout angina pectoris Is this a current diagnosis for this admission?: Yes (4) Myelodysplastic syndrome Is this a current diagnosis for this admission?: Yes - Time Time Spent with patient: 25-34 minutes
[2019-05-25 14:37] LABS: VANCOMYCIN,TROUGH 17.2 ug/mL (5.0-20.0)
--- NOTE | 2019-05-25 15:18 | PDOC PROGRESS REPORT ---
Subjective Progress Note for:: 05/25/19 Subjective:: Patient feeling much stronger. No further fevers. No new complaints today. Some cough. Reason For Visit: NEUTROPENIC FEVER Physical Exam Vital Signs: Temp Pulse Resp BP Pulse Ox 97.8 F 80 12 119/62 96 05/25/19 11:57 05/25/19 13:52 05/25/19 13:52 05/25/19 11:57 05/25/19 13:52 Intake & Output 05/24/19 05/25/19 05/26/19 06:59 06:59 06:59 Intake Total 2393 1810 250 Balance 2393 1810 250 Weight 69.2 kg 69.2 kg General appearance: PRESENT: well-developed, well-nourished Head exam: PRESENT: normocephalic Respiratory exam: PRESENT: unlabored Neurological exam: PRESENT: alert, awake Psychiatric exam: PRESENT: appropriate affect Skin exam: PRESENT: normal color Results Laboratory Results: 05/25/19 05:44 05/25/19 05:44 05/24/19 05/25/19 05/25/19 07:27 05:44 05:44 WBC 1.1 L* 1.1 L* RBC 2.66 L 2.61 L Hgb 8.8 L 8.6 L Hct 25.2 L 24.9 L MCV 95 95 MCH 33.0 32.9 MCHC 34.7 34.6 RDW 15.2 H 15.5 H Plt Count 300 321 Seg Neutrophils % Not Reportable Not Reportable Sodium 138.2 Potassium 4.3 Chloride 101 Carbon Dioxide 29 Anion Gap 8 BUN 13 Creatinine 0.80 Est GFR ( Amer) > 60 Glucose 115 H Calcium 9.1 Magnesium 2.1 05/23/19 21:42 Sputum Gram Stain - Final 05/23/19 21:42 Sputum Sputum Culture - Final Impressions: Chest X-Ray 05/22/19 15:14 IMPRESSION: NO ACUTE RADIOGRAPHIC FINDING IN THE CHEST. Chest CT 05/23/19 12:11 IMPRESSION: Patchy airspace disease in both upper lobes and lingula. Most likely infectious or inflammatory process. No dense consolidation. No effusions. There is mediastinal adenopathy most likely reactive. Assessment & Plan - Diagnosis (1) Myelodysplastic syndrome Is this a current diagnosis for this admission?: Yes Plan: Due for chemo again beginning Wednesday. We discussed this and will consider again on Wednesday. (2) Neutropenic fever Is this a current diagnosis for this admission?: Yes Plan: His fever has resolved. Cultures are negative. I agree with plans to change to PO antibiotics and discharge home. I do not expect his ANC to significantly improve. I agree with plans for TB screening. I will see him again on Wednesday in the office. - Time Time Spent with patient: Less than 15 minutes
[2019-05-26] MEDS: LEVALBUTEROL HCL NEB 0.63 MG/3 ML AMPUL NEB PRN (02:12)
[2019-05-26] MEDS: ACETYLCYSTEINE 10% NEB 400 MG/4 ML VIAL NEB SCH ×2 (02:12→08:30)
[2019-05-26] MEDS: CEFEPIME 2 GM/D5W RTU 2 GM/50 ML RTUPB IV SCH (05:14)
[2019-05-26] MEDS: VANCOMYCIN HCL 750 MG in DEXTROSE 5%-WATER 250 ML IV SCH (05:59)
[2019-05-26] MEDS: HEPARIN SOD (PORCINE) 5,000 UNIT/ML 1 ML VIAL SUBCUT SCH (06:01)
[2019-05-26 06:41] LABS: HEMATOCRIT 25.7 % (37.9-51.0); HEMOGLOBIN 8.8 g/dL (13.5-17.0); MEAN CORPUSCULAR HEMOGLOBIN 32.7 pg (27.0-33.4); MEAN CORPUSCULAR HGB CONC 34.1 g/dL (32.0-36.0); MEAN CORPUSCULAR VOLUME 96 fl (80-97); PLATELET COUNT 336 10^3/uL (150-450); RED BLOOD COUNT 2.68 10^6/uL (4.35-5.55); RED CELL DISTRIBUTION WIDTH 15.6 % (11.5-14.0)
[2019-05-26 07:17] LABS: WHITE BLOOD COUNT 1.2 10^3/uL (4.0-10.5)
[2019-05-26 07:27] LABS: ABSOLUTE LYMPHOCYTES# (MANUAL) 0.5 10^3/uL (0.5-4.7); BASOPHILS % (MANUAL) 0 % (0-2); EOSINOPHILS % (MANUAL) 4 % (0-6); LYMPHOCYTES % (MANUAL) 42 % (13-45); MONOCYTES % (MANUAL) 2 % (3-13); SEGMENTED NEUTROPHILS % (MAN) 52 % (42-78); TOTAL CELLS COUNTED 50
[2019-05-26 07:29] LABS: ANISOCYTOSIS SLIGHT; OVALOCYTES SLIGHT; PLATELET COMMENT ADEQUATE; POIKILOCYTOSIS SLIGHT; TEAR DROP CELLS SLIGHT
--- NOTE | 2019-05-26 09:01 | PDOC PROGRESS REPORT ---
Subjective Progress Note for:: 05/26/19 Subjective:: Patient feeling well. Anxious to go home. No further fevers. ROS: No chest pain. No dyspnea. No nausea. Daughter is at bedside. Reason For Visit: NEUTROPENIC FEVER Physical Exam Vital Signs: Temp Pulse Resp BP Pulse Ox 97.9 F 92 16 135/66 H 97 05/26/19 07:05 05/26/19 07:05 05/26/19 07:05 05/26/19 07:05 05/26/19 07:05 Intake & Output 05/25/19 05/26/19 05/27/19 06:59 06:59 06:59 Intake Total 1810 1300 Balance 1810 1300 Weight 69.2 kg 69.2 kg General appearance: PRESENT: no acute distress, thin Head exam: PRESENT: normocephalic Results Laboratory Results: 05/26/19 06:02 05/25/19 05:44 05/26/19 06:02 WBC 1.2 L* RBC 2.68 L Hgb 8.8 L Hct 25.7 L MCV 96 MCH 32.7 MCHC 34.1 RDW 15.6 H Plt Count 336 Seg Neutrophils % Not Reportable Impressions: Chest X-Ray 05/22/19 15:14 IMPRESSION: NO ACUTE RADIOGRAPHIC FINDING IN THE CHEST. Chest CT 05/23/19 12:11 IMPRESSION: Patchy airspace disease in both upper lobes and lingula. Most likely infectious or inflammatory process. No dense consolidation. No effusions. There is mediastinal adenopathy most likely reactive. Assessment & Plan - Diagnosis (1) Myelodysplastic syndrome Is this a current diagnosis for this admission?: Yes Plan: On . He will follow-up in my office on Wednesday for continuation of treatment. (2) Neutropenic fever Is this a current diagnosis for this admission?: Yes Plan: Fever resolved. Thought to be due to pneumonia. Continue full course of antibiotics (PO at home) I agree with plans to place PPD test today and I will read in my office on Wednesday. - Time Time Spent with patient: 15-24 minutes - Plan Summary Plan Summary: OK for discharge today from my standpoint. He remains neutropenic, but this has improved.
[2019-05-26] MEDS ORDERED: NICOTINE 21 MG/24 HR PATCH.TD24 TD SCH (10:00)
--- NOTE | 2019-05-26 10:24 | Pulmonary Function Test ---
Pulmonary Function Test Date of Procedure:: 05/24/19 INDICATION:: Dyspnea Referring Provider: Dr. Trace Hammonds Waiter/Waitress Second Class: Leigh Harper, HAND NAILER, MERCHANDISING REPRESENTATIVE - Report Spirometry: Spirometry : pre-FVC:[83% 3.14 L post-FVC: 3.42 L 90% pre-FEV:1 1.94 L 66% post-FEV1: 2.32 L 79% pre-FEV1/FVC %: 62 post-FEV1/FVC%: 68 predicted: 77 [id number]%: 0.75 L 27% [id number]%: 1.18 L 42% Lung Volume: Total lung capacity: 5.44 L 86% Vital capacity: 3.45 L 91% Inspiratory capacity: 1.73 L FRC N2: 3.71 L 93% ERV: 0.64 L RV: 1.99 L 72% RV/TLC %:: 37 predicted 45 Diffusion Capactity: DLCO: 14.9 93% DLCO/VA: 3.33 100% Impression: Mild obstructive ventilatory defect insignificant response to bronchodilator therapy. This in and of itself does not preclude a clinical trial of br onchodilator therapy. No restrictive ventilatory defect. No hyperinflation. No air trapping. Normal diffusion capacity.
[2019-05-26 10:43] VITALS: BP 130/62
[2019-05-26] MEDS: FAMOTIDINE 20 MG TABLET PO SCH (11:36)
[2019-05-26] MEDS: DOCUSATE SODIUM 100 MG CAPSULE PO SCH (11:36)
[2019-05-26] MEDS ORDERED: TUBERCULIN,PURIF.PROT.DERIV. 5 TU/0.1 ML TEST 1 ML VIAL ID ONE (12:00)
--- NOTE | 2019-05-26 17:34 | PDOC DISCHARGE SUMMARY ---
Impression - Admit/DC Date/PCP Admission Date/Primary Care Provider: 05/22/19 21:22 TY MAJANO PA-C Discharge Date: 05/26/19 - Discharge Diagnosis (1) Neutropenic fever Is this a current diagnosis for this admission?: Yes (2) CAD (coronary artery disease) Is this a current diagnosis for this admission?: Yes (3) Myelodysplastic syndrome Is this a current diagnosis for this admission?: Yes (4) Pneumonia Is this a current diagnosis for this admission?: Yes - Additional Information Resuscitation Status: Full Code Discharge Activity: Balance Activity w/Rest Referrals: TULIO OCASIO MD [ACTIVE STAFF] - 05/29/19 9:15 am TY MAJANO PA-C [Primary Care Provider] - 05/30/19 2:00 pm (CALL THE OFFICE FOR ANY QUESTIONS OR CONCERN. ) Prescriptions: Levofloxacin [Levaquin 500 mg Tablet] 500 mg PO DAILY 5 Days #5 tablet Home Medications: RX: Atorvastatin Calcium [Lipitor 40 mg Tablet] 40 mg PO QHS 12/14/17 RX: Metoprolol Succinate [Toprol Xl 25 mg Tab.sr] 25 mg PO DAILY 12/14/17 RX: Ondansetron HCl in 0.9 % NaCl [Ondansetron 16 mg/100 ml-Ns] 16 mg IV PRN PRN 05/12/19 RX: Ondansetron [Ondansetron Odt] 8 mg PO Q8HP PRN 05/12/19 RX: Acetaminophen [Tylenol 325 mg Tablet] 325 mg PO DAILYP PRN 05/23/19 RX: Cetirizine HCl [Aller-Ana Cristina] 1 tab PO DAILY 05/23/19 RX: Fluticasone Propionate [Flonase Nasal [place] 50 Mcg/[place] 16 gm] 2 sprays NASL DAILY 05/23/19 RX: Ibuprofen 200 mg PO DAILYP PRN 05/23/19 RX: Ranitidine HCl 150 mg PO DAILY 05/23/19 RX: Triamcinolone Acetonide [Aristocort 0.1% Cream] 1 applic TP ASDIR PRN 05/23/19 Levofloxacin [Levaquin 500 mg Tablet] 500 mg PO DAILY 5 Days #5 tablet 05/26/19 History of Present Illiness History of Present Illness: Admitting hospitalist's H&P: ROXY ALANIS is a 84 year old male who presented to the emergency room with an 11-day history of fever. Patient his family admit a fever present on a daily basis for the last 11 days. The fever has been as high as 102 F. Fever has been accompanied by severe night sweats, occasional mild confusion and mild head congestion. He denies other associated or accompanying signs and symptoms. He admits a history of myelodysplasia which was treated with a new chemotherapy agent for the first time 3 weeks ago and he developed his fever 3 to 4 days after his last dose. He notes he received a influenza vaccine the day after his last chemotherapy dose (1 daily x7 days beginning 04/29/2018). He was seen at Dr. Hearn's office today and was sent directly to the emergency room for evaluation, as he was noted to have a fever of 102 F. He denies prior similar episodes and has not identified any other aggravating or ameliorating factor for his fever. In the emergency room the patient was afebrile having received acetaminophen at Dr. Hearn's office. He was noted to have a white count of 600 with a low absolute neutrophil count. He was subsequently admitted to the hospital for further evaluation and treatment of his neutropenic fever. Hospital Course Hospital Course: Patient is admitted for neutropenic fever. His work-up was remarkable for pneumonia. Blood cultures were negative. He was initially started on broad- spectrum IV antibiotics. His white count and ANC did gradually improve. Due to his MDS, he has expectedly relatively low WBC and ANC. Hematology was also closely following patient. He was cleared by hematology for discharge. Patient will be discharged on oral levofloxacin. He will also get a PPD today which will be read by his mine inspector on Wednesday. Physical Exam Vital Signs: Temp Pulse Resp BP Pulse Ox 97.9 F 106 H 17 130/62 H 96 05/26/19 10:41 05/26/19 10:41 05/26/19 10:41 05/26/19 10:41 05/26/19 10:41 Intake & Output 05/25/19 05/26/19 05/27/19 06:59 06:59 06:59 Intake Total 1810 1300 300 Balance 1810 1300 300 Weight 152 lb 8.958 oz 152 lb 8.958 oz General appearance: PRESENT: no acute distress, well-developed, well-nourished Head exam: PRESENT: atraumatic, normocephalic Eye exam: PRESENT: conjunctiva pink, EOMI, PERRLA. ABSENT: scleral icterus Ear exam: PRESENT: normal external ear exam Mouth exam: PRESENT: moist, tongue midline Neck exam: ABSENT: carotid bruit, JVD, lymphadenopathy, thyromegaly Respiratory exam: PRESENT: clear to auscultation belen. ABSENT: rales, rhonchi, wheezes Cardiovascular exam: PRESENT: RRR. ABSENT: diastolic murmur, rubs, systolic murmur Pulses: PRESENT: normal dorsalis pedis pul GI/Abdominal exam: PRESENT: normal bowel sounds, soft. ABSENT: distended, guarding, mass, organolmegaly, rebound, tenderness Rectal exam: PRESENT: deferred Extremities exam: PRESENT: full ROM. ABSENT: calf tenderness, clubbing, pedal edema Neurological exam: PRESENT: alert, awake, oriented to person, oriented to place, oriented to time, oriented to situation, CN II-XII grossly intact. ABSENT: motor sensory deficit Results Laboratory Results: WBC 1.2 10^3/uL (4.0-10.5) L* 05/26/19 06:02 RBC 2.68 10^6/uL (4.35-5.55) L 05/26/19 06:02 Hgb 8.8 g/dL (13.5-17.0) L 05/26/19 06:02 Hct 25.7 % (37.9-51.0) L 05/26/19 06:02 MCV 96 fl (80-97) 05/26/19 06:02 MCH 32.7 pg (27.0-33.4) 05/26/19 06:02 MCHC 34.1 g/dL (32.0-36.0) 05/26/19 06:02 RDW 15.6 % (11.5-14.0) H 05/26/19 06:02 Plt Count 336 10^3/uL (150-450) 05/26/19 06:02 Lymph % (Auto) Not Reportable 05/26/19 06:02 [place] % (Auto) Not Reportable 05/26/19 06:02 Eos % (Auto) Not Reportable 05/26/19 06:02 Baso % (Auto) Not Reportable 05/26/19 06:02 Absolute Neuts (auto) Not Reportable 05/26/19 06:02 Absolute Lymphs (auto) Not Reportable 05/26/19 06:02 Absolute Monos (auto) Not Reportable 05/26/19 06:02 Absolute Eos (auto) Not Reportable 05/26/19 06:02 Absolute Basos (auto) Not Reportable 05/26/19 06:02 Total Counted 50 05/26/19 06:02 Seg Neutrophils % Not Reportable 05/26/19 06:02 Seg Neuts % (Manual) 52 % (42-78) 05/26/19 06:02 Lymphocytes % (Manual) 42 % (13-45) 05/26/19 06:02 Atypical Lymphs % 2 % (0) 05/25/19 05:44 Monocytes % (Manual) 2 % (3-13) L 05/26/19 06:02 Eosinophils % (Manual) 4 % (0-6) 05/26/19 06:02 Basophils % (Manual) 0 % (0-2) 05/26/19 06:02 Abs Neuts (Manual) 0.6 10^3/uL (1.7-8.2) L 05/26/19 06:02 Abs Lymphs (Manual) 0.5 10^3/uL (0.5-4.7) 05/26/19 06:02 Abs Monocytes (Manual) 0.0 10^3/uL (0.1-1.4) L 05/26/19 06:02 Absolute Eos (Manual) 0.0 10^3/uL (0.0-0.6) 05/26/19 06:02 Abs Basophils (Manual) 0.0 10^3/uL (0.0-0.2) 05/26/19 06:02 Nucleated RBCs 2 /100 WBC (0) 05/25/19 05:44 Platelet Comment ADEQUATE 05/26/19 06:02 Polychromasia SLIGHT 05/24/19 07:27 Poikilocytosis SLIGHT 05/26/19 06:02 Anisocytosis SLIGHT 05/26/19 06:02 Tear Drop Cells SLIGHT 05/26/19 06:02 Ovalocytes SLIGHT 05/26/19 06:02 PT 14.3 SEC (11.4-15.4) 05/22/19 15:40 INR 1.10 05/22/19 15:40 VBG pH Cancelled 05/22/19 15:40 VBG pCO2 Cancelled 05/22/19 15:40 VBG HCO3 Cancelled 05/22/19 15:40 VBG Base Excess Cancelled 05/22/19 15:40 Sodium 138.2 mmol/L (137-145) 05/25/19 05:44 Potassium 4.3 mmol/L (3.6-5.0) 05/25/19 05:44 Chloride 101 mmol/L (98-107) 05/25/19 05:44 Carbon Dioxide 29 mmol/L (22-30) 05/25/19 05:44 Anion Gap 8 (5-19) 05/25/19 05:44 BUN 13 mg/dL (7-20) 05/25/19 05:44 Creatinine 0.80 mg/dL (0.52-1.25) 05/25/19 05:44 Est GFR ( Amer) > 60 (>60) 05/25/19 05:44 Est GFR (MDRD) Non-Af > 60 (>60) 05/25/19 05:44 Glucose 115 mg/dL (75-110) H 05/25/19 05:44 Lactic Acid 0.8 mmol/L (0.7-2.1) 05/22/19 15:40 Calcium 9.1 mg/dL (8.4-10.2) 05/25/19 05:44 Magnesium 2.1 mg/dL (1.6-2.3) 05/25/19 05:44 Total Bilirubin 0.3 mg/dL (0.2-1.3) 05/22/19 15:40 Direct Bilirubin 0.2 mg/dL (0.0-0.4) 05/22/19 15:40 Neonat Total Bilirubin Not Reportable 05/22/19 15:40 Neonat Direct Bilirubin Not Reportable 05/22/19 15:40 Neonat Indirect Bili Not Reportable 05/22/19 15:40 AST 40 U/L (17-59) 05/22/19 15:40 ALT 49 U/L (<50) 05/22/19 15:40 Alkaline Phosphatase 172 U/L (38-126) H 05/22/19 15:40 Total Protein 6.5 g/dL (6.3-8.2) 05/22/19 15:40 Albumin 3.1 g/dL (3.5-5.0) L 05/22/19 15:40 Urine Color YELLOW 05/22/19 19:25 Urine Appearance CLEAR 05/22/19 19:25 Urine pH 6.0 (5.0-9.0) 05/22/19 19:25 Ur Specific [place] 1.011 05/22/19 19:25 Urine Protein NEGATIVE mg/dL (NEGATIVE) 05/22/19 19:25 Urine Glucose (UA) NEGATIVE mg/dL (NEGATIVE) 05/22/19 19:25 Urine Ketones NEGATIVE mg/dL (NEGATIVE) 05/22/19 19:25 Urine Blood NEGATIVE (NEGATIVE) 05/22/19 19:25 Urine Nitrite NEGATIVE (NEGATIVE) 05/22/19 19:25 Urine Bilirubin NEGATIVE (NEGATIVE) 05/22/19 19:25 Urine Urobilinogen NEGATIVE mg/dL (<2.0) 05/22/19 19:25 Ur Leukocyte Esterase NEGATIVE (NEGATIVE) 05/22/19 19:25 Urine WBC (Auto) 1 /HPF 05/22/19 19:25 Urine Mucus (Auto) OCC /LPF 05/22/19 19:25 Urine Ascorbic Acid NEGATIVE (NEGATIVE) 05/22/19 19:25 Time Trough Drawn 1348 05/25/19 13:48 Vancomycin Trough 17.2 ug/mL (5.0-20.0) 05/25/19 13:48 AFB Smear Cancelled 05/23/19 21:42 Slides for Path Review PATHOLOGIST REVIEWED 05/22/19 15:40 Impressions: Chest X-Ray 05/22/19 15:14 IMPRESSION: NO ACUTE RADIOGRAPHIC FINDING IN THE CHEST. Chest CT 05/23/19 12:11 IMPRESSION: Patchy airspace disease in both upper lobes and lingula. Most likely infectious or inflammatory process. No dense consolidation. No effusions. There is mediastinal adenopathy most likely reactive. Stroke Is this a Stroke Patient?: No Acute Heart Failure - Is this a Heart Failure Patient?: No
== END 2019-05-26 12:00 | disposition home or self-care (01) | DRG 808 ==
LOC: ER 14:45 → EH 21:22 → 4S 05-23 01:04 → 2N 05-24 22:50
PROVIDERS: ADMIT Emergency Medicine; ATTEND Emergency Medicine
DX: D70.3 Neutropenia due to infection (principal); J18.9 Pneumonia, unspecified organism; R50.81 Fever presenting with conditions classified elsewhere; D46.9 Myelodysplastic syndrome, unspecified; I25.10 Atherosclerotic heart disease of native coronary artery without angina pectoris; E78.5 Hyperlipidemia, unspecified; J44.9 Chronic obstructive pulmonary disease, unspecified; Z90.49 Acquired absence of other specified parts of digestive tract
CPT/HCPCS: 36415; 71046; 71250; 80048; 80053; 80202; 81001; 83605; 83735; 85025; 85027; 85610; 87040; 87070; 87086; 87205; 93005; 93010; 94060; 94640; 94727; 94729; 96365; 96367; 99285; J0692; J1644; J3370; J3490; J7060; J7614

== ENCOUNTER 2019-06-26 06:24 | Day surgery (SDC) | payer MEDICARE, BC ==
[~2019-06-26 06:24] MED LIST changes: -BACITRACIN INJ 50,000 UNIT VIAL ONE; -CEFAZOLIN 1 GM/D5W RTU 1 GM/50 ML RTUPB IV ONE; -CEFAZOLIN 1 GM/D5W RTU 1 GM/50 ML RTUPB IV PRN; +CEFAZOLIN SODIUM 1 GM in DEXTROSE 5%-WATER 50 ML IV PRN; -DEXTROSE 5%-1/2 NORMAL SALINE 1,000 ML IV PRN; -DIAZEPAM 5 MG TABLET ONE; -HEPARIN SODIUM,PORCINE/NS/PF 0 UNIT/0 ML RTUINJ IV ONE; -LIDOCAINE 0.5% INJ-PF (5 MG/ML) 50 ML SDV ONE; -OXYCODONE-ACETAMINOPHEN 5-325 MG TABLET ONE
[2019-06-26 06:54] LABS: HEMATOCRIT 31.9 % (37.9-51.0); HEMOGLOBIN 10.6 g/dL (13.5-17.0); MEAN CORPUSCULAR HEMOGLOBIN 32.1 pg (27.0-33.4); MEAN CORPUSCULAR HGB CONC 33.1 g/dL (32.0-36.0); MEAN CORPUSCULAR VOLUME 97 fl (80-97); PLATELET COUNT 167 10^3/uL (150-450); RED CELL DISTRIBUTION WIDTH 17.8 % (11.5-14.0); WHITE BLOOD COUNT 3.3 10^3/uL (4.0-10.5)
[2019-06-26] MEDS ORDERED: OXYCODONE-ACETAMINOPHEN 5-325 MG TABLET ONE (06:56)
[2019-06-26] MEDS ORDERED: DIAZEPAM 5 MG TABLET ONE (06:56)
[2019-06-26 07:13] LABS: ANION GAP 10 (5-19); BLOOD UREA NITROGEN 16 mg/dL (7-20); CARBON DIOXIDE 27 mmol/L (22-30); CHLORIDE 103 mmol/L (98-107); GLUCOSE 104 mg/dL (75-110); POTASSIUM 3.8 mmol/L (3.6-5.0)
[2019-06-26] MEDS ORDERED: LIDOCAINE 0.5% INJ-PF (5 MG/ML) 50 ML SDV ONE (09:51)
[2019-06-26] MEDS ORDERED: BACITRACIN INJ 50,000 UNIT VIAL ONE (09:51)
[2019-06-26] MEDS ORDERED: MIDAZOLAM 2 MG/2 ML INJ ONE (10:07)
[2019-06-26] MEDS ORDERED: FENTANYL CITRATE INJ/PF 100 MCG/2 ML AMPUL ONE (10:07)
--- NOTE | 2019-06-26 11:49 | Discharge Summary ---
Discharge Summary (SDC) - Discharge Final Diagnosis: Myelodysplastic syndrome. Date of Surgery: 06/26/19 Discharge Date: 06/26/19 Condition: Fair Treatment or Instructions: Discharge home [after recovery per ASU criteria]. Diet ,as tolerated, when fully awake advance as tolerated. Activities within moderation encouraged. Follow up in my office by appointment in about [1 week]. Call for appointment. Leave wounds [covered], [keep clean and dry, until office visit in 1 week]. Meds per med rec. Percocet. May shower [in 48 hrs], [try to keep operated area as dry as possible]. Prescriptions: Oxycodone HCl/Acetaminophen [Percocet 5-325 mg Tablet] 1 tab PO ASDIR PRN #15 tab PRN Reason: Referrals: TY MAJANO PA-C [Primary Care Provider] - Discharge Diet: As Tolerated Respiratory Treatments at Home: Deep Breathing/Coughing Discharge Activity: Activity As Tolerated Home Care Assistance: None Needed Report the Following to Your Physician Immediately: Shortness of Breath, Increase in Pain, Fever over 101 Degrees, Unusual Bleeding, Drainage-Yellow, Drainage-Noble, Drainage-Green, Drainage-Foul Smelling, IV Site Infection Signs
--- NOTE | 2019-06-26 12:33 | RADIOLOGY REPORT (SQ) ---
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 FLUOROSCOPY TIME: 0.2 minutes. 45 images saved to PACS. TECHNIQUE: Intra-operative images acquired during surgical procedure to evaluate progress. NUMBER OF IMAGES: 45 images. LIMITATIONS: None. FINDINGS: Images of the chest acquired during catheter placement. IMPRESSION: IMAGE(S) OBTAINED DURING PROCEDURE. COMMENT: Quality ID 145: Final reports for procedures using fluoroscopy that document radiation exp osure indices, or exposure time and number of fluorographic images (if radiation exposure indices are not available) Please consult full operative report of the attending physician for description of the procedure. TECHNICAL DOCUMENTATION: JOB ID: [id number] [employer] ([email or web address])- All Rights Reserved Reading location - IP/workstation name: [email or web address]
[2019-06-26 12:36] VITALS: BP 153/73
--- NOTE | 2019-06-26 15:18 | Operative Report ---
Operative Report DATE OF SURGERY: 06/26/19 PREOPERATIVE DIAGNOSIS: Myeloproliferative disorder. POSTOPERATIVE DIAGNOSIS: Myeloproliferative disorder. OPERATION: 1. Ultrasound evaluation of the right internal jugular vein. 2. Insertion of Port-A-Cath via real-time access in the right internal jugular vein. 3. Angiogram and interpretation. SURGEON: BLESSING RAMIREZ SENIOR APPLICATIONS ENGINEER: None. ANESTHESIA: Moderate Sedation TISSUE REMOVED OR ALTERED: Not applicable. COMPLICATIONS: None. ESTIMATED BLOOD LOSS: 5 mL. INTRAOPERATIVE FINDINGS: Of a satisfactory right internal jugular vein estimated to be about 1.2 cm in diameter. Safe access with good position of the catheter tip at about the upper right atrium. This is particularly noticeable as it is about the locus of the upper portion of the right atrial lead from a pacemaker. Easy egress of blood and ingress of heparinized solution. Satisfactory flow of contrast through the catheter, right atrium and ventricle. Post procedure chest x-ray unremarkable with hardware in appropriate position. No untoward findings. PROCEDURE: After obtaining informed consent, the patient was taken to the Hose Tender and positioned supine. The [right] neck and chest were prepared with chlorhexidine and draped out with sterile linen. After the " universal timeout", in which it was verified that the patient continued to receive antibiotic, the procedure commenced. A steriley sheathed ultrasound probe was used to evaluate the [right] internal jugular vein. Local anesthesia was infiltrated adjacent to the probe. Access into the [right] internal jugular vein was obtained using a micropuncture needle, followed by micropuncture wire and then a micropuncture catheter. This was followed by introduction of a 0.035 guidewire the tip of which was placed down into the inferior vena cava . The port sites was marked , locally anesthetized and incision made. Dissection now proceeded to the deep subcutaneous subcutaneous tissues so that a pocket for the port was made. Meticulous hemostasis was secured and the catheter was tunneled between the 2 incisions. Proximally, the catheter was now positioned using a peel-away sheath. Distally the catheter was tailored to an appropriate length and then mated to the port using the contained fixating device. The port was now placed in the pocket and the catheter optimally positioned. The port was accessed with a Ng needle and an angiogram done under digital subtraction. The findings as dictated. With adequate and satisfactory positioning, the lumen of the chamber were irrigated with heparinized solution. The wounds were now closed using interrupted 3-0 PDS to the subcutaneous tissues and a continuous subcuticular suture of 4-0 Monocryl to the skin. These are reinforced with Steri-Strips over benzoin and then dressings applied. Time: 0.2 minute. Dose: 4.27 m Gy Contrast: 5 Mls. Isovue 300. Copies of the dictated operative report for Dr. Blsesing Mcgrath MD.
== END 2019-06-26 12:25 | disposition home or self-care (01) ==
LOC: CCL 06:24
PROVIDERS: ATTEND Surgery
DX: D46.21 Refractory anemia with excess of blasts 1 (principal); D72.819 Decreased white blood cell count, unspecified; Z79.01 Long term (current) use of anticoagulants; D46.4 Refractory anemia, unspecified; C62.90 Malignant neoplasm of unspecified testis, unspecified whether descended or undescended; D61.818 Other pancytopenia; E55.9 Vitamin D deficiency, unspecified; Z95.0 Presence of cardiac pacemaker; I25.2 Old myocardial infarction; Z87.891 Personal history of nicotine dependence; Z79.82 Long term (current) use of aspirin; Z79.899 Other long term (current) drug therapy
CPT/HCPCS: 36415; 85027; 80048; 36561; 76937; 77001; C1752; C1788; Q9967; J2250; J3490 ×2; J0690; A9270 ×2; J3010; J7060; J1644

== ENCOUNTER 2019-08-08 07:44 | Outpatient (CLI) | payer MEDICARE, BC ==
[~2019-08-08 07:44] MED LIST changes: +AZACITIDINE IV PRN; -CEFAZOLIN SODIUM 1 GM in DEXTROSE 5%-WATER 50 ML IV PRN; +DEXAMETH 10 MG/ONDANSETRON 16 MG in NS 50 ML IV PRN; -DIAZEPAM 5 MG TABLET PO PRN; +NORMAL SALINE 250 ML @ KVO IV PRN; +NORMAL SALINE IV PRN; -OXYCODONE-ACETAMINOPHEN 5-325 MG TABLET PO PRN
[2019-08-08 07:59] VITALS: BP 150/63
== END 2019-08-08 09:37 | disposition home or self-care (01) ==
LOC: II 07:44 → 5TH 07:46 → II 09:37
PROVIDERS: ATTEND Internal Medicine Hematology & Oncology
DX: Z51.11 Encounter for antineoplastic chemotherapy (principal); D46.21 Refractory anemia with excess of blasts 1
CPT/HCPCS: 96413; 96367; J2405; J7050; J1100; J9025; J1642